=== PATIENT | female | born 1960 | race Caucasian/White ===

== ENCOUNTER 2020-03-19 12:34 | Emergency (ER) | payer OTHER, SELFPAY ==
[2020-03-19 12:41] VITALS: BP 147/100; PULSE 92; RESP 18; TEMP 36.8; O2SAT 96; BMI 33.9
--- NOTE | 2020-03-19 13:30 | CTR_ITS ---
PROCEDURE INFORMATION: Exam: CT Head Without Contrast Exam date and time: 03/19/2020 3:54 PM Age: 60 years old Clinical indication: Visual disturbance; Patient HX: Headache with flashes in right eye; Additional info: COLEMAN with vision changes TECHNIQUE: Imaging protocol: Computed tomography of the head without contrast. Radiation optimization: All CT scans at this facility use at least one of these dose optimization techniques: automated exposure control; mA and/or kV adjustment per patient size (includes targeted exams where dose is matched to clinical indication); or iterative reconstruction. COMPARISON: No relevant prior studies available. RADIATION DOSE METRICS: Total DLP (mGy-cm): 827.21 FINDINGS: Brain: No acute intracranial hemorrhage, cerebral edema, or midline shift. Cerebral ventricles: No hydrocephalus. Bones/joints: No acute fracture. Paranasal sinuses: There is no acute sinusitis. Mastoid air cells: Visualized mastoid air cells are well aerated. Orbital cavity: Unremarkable as visualized. Soft tissues: Unremarkable. CT/CT head wo con* [id number] IMPRESSION: No acute intracranial abnormality. Radiation Dose CTDIVOL = (mGy): DLP = 827.21 (mGy-cm)
--- NOTE | 2020-03-19 14:16 | W.ED.HA ---
HPI - Headache General: Chief Complaint: Headache Stated Complaint: vision problems/headache Time Seen by Provider: 03/19/20 13:48 History of Present Illness: HPI Narrative: 60-year-old female patient presents to the emergency department [facility] She reports onset of headache yesterday, reports flashes of light in the right eye with certain movement. She denies history of migraine headaches. [facility], they referred her to the emergency department due to need for CT scan of the head. She reports light sensitivity, denies nausea vomiting, reports extremely anxious and upset due to wait time. She reports is due for her Valium, Valium bottle with her, 5 mg tablets. MD elicited complaint: headache Onset (ago): hour(s) (24) Onset description: gradually Location: frontal Severity: moderate Pain scale (0-10): 5 Quality & Timing: aching and throbbing Exacerbating factors: exertion, light and noise Relieving factors: rest Associated symptoms: Reports photophobia and other (Flashes of light in the left eye with ocular movement); Deny chest pain, diaphoresis, fever(s), malaise, nausea, rash or vomiting Treatments prior to arrival: none Review of Systems General: Reports: 10 or more systems reviewed and unremarkable except in HPI and below Const: Denies: fever(s), chills, body aches, fatigue, malaise or diaphoresis Eyes: Reports: change in vision (Flashes of light with ocular movement), photophobia and seeing flashes; Denies: blurry vision, eye discharge, eye redness or dry eyes ENMT: Denies: throat pain, oral sores, dental pain, disequilibrium or nasal congestion Card: Denies: chest pain, palpitations or irregular heart rhythm Resp: Denies: dyspnea, productive cough, non-productive cough or wheezing GI: Denies: abdominal pain, nausea, vomiting or GI cramping : Denies: difficulty voiding or dysuria Musc: Denies: neck pain or back pain Skin/Breast: Denies: rash or pruritus Neuro: Denies: headache(s), weakness in extremities or behavioral changes Psych: Reports: anxiety; Denies: depression or change in appetite Cristhian/Lymph: Denies: easy bruising Physical Exam Const: COMMON NORMALS: no acute distress, patient oriented x3, healthy appearing and alert GENERAL APPEARANCE: cooperative, comfortable and well hydrated HENMT: COMMON NORMALS: normocephalic, atraumatic, external ears normal, EAC's normal, TM's normal bilaterally, Normal external nose present, Normal nasal mucous membranes and turbinates present, moist oral mucous membranes and oropharynx normal HEAD & SCALP: normal to inspection, normocephalic and atraumatic NOSE: Normal external nose present and Normal nasal mucous membranes and turbinates present EXTERNAL EAR: Yes external ears normal EXTERNAL AUDITORY CANAL: EAC's normal TYMPANIC MEMBRANE: TM's normal bilaterally Eye: COMMON NORMALS: Equal, round and reactive pupils present and EOMs intact bilaterally GENERAL EYE: appearance normal, both eyes and all related structures PERIORBITAL: periorbital findings normal EYELID: eyelids normal PUPIL: Yes Equal, round and reactive pupils present, Yes pupil size - right Right pupil size (mm): 3 and Yes pupil size - left Left pupil size (mm): 3 DIRECT OPHTHALMOSCOPY: Yes photophobia Neck/C-Spine: COMMON NORMALS: full ROM and no lymphadenopathy GENERAL: Yes normal visual inspection and Yes trachea midline CERVICAL SPINE: Yes cervical ROM normal, No pain with cervical ROM and No Cervical spine tenderness Lymph: LYMPHATIC: no lymphadenopathy noted Chest: COMMONS NORMALS: normal inspection of the chest Resp: COMMON NORMALS: normal respiratory effort, No use of accessory muscles and clear to auscultation bilaterally EFFORT & INSPECTION: Yes able to speak in complete sentences AUSCULTATION: clear to auscultation bilaterally Cardio: COMMON NORMALS: regular rhythm, S1 normal heart sound present, S2 normal heart sound present and Peripheral pulses 2+ throughout RHYTHM: regular rhythm HEART SOUNDS: S1 normal heart sound present and S2 normal heart sound present PERIPHERAL PULSES: Peripheral pulses 2+ throughout GI: COMMON NORMALS: Normal to inspection, nondistended, normoactive bowel sounds present, Soft to palpation and non-tender INSPECTION: Yes normal to inspection PALPATION: Yes Soft to palpation : COMMON NORMALS: Yes no CVA tenderness BLADDER/KIDNEY EXAM: Yes no CVA tenderness Back/Pelvis: COMMON NORMALS: no CVA tenderness and thoracic and lumbar spine normal to inspection Extremity: COMMON NORMALS: normal to inspection and capillary refill normal Neuro: CAROLE COMA SCALE: document GCS findings [place]ole coma scale eye opening: Spontaneous [place] coma scale verbal response: Orientated [place] coma scale motor response: Obey commands [place] coma scale total score: 15 COMMON NORMALS: patient oriented x3, moves all extremities, no focal motor deficits and gait normal SENSORIUM/ORIENTATION: Yes alert COORDINATION/BALANCE: [id number] test normal SPEECH: speech normal MOTOR EXAM: 5/5 motor strength present throughout COORDINATION: [id number] test normal and Romberg test normal Right pupil size (mm): 4 Left pupil size (mm): 4 Psych: COMMON NORMALS: mental status grossly normal, Normal thought process present, cooperative and speech normal ACTIVITY/MOTOR BEHAVIOR: Yes appropriate eye contact SPEECH: Yes normal speech MOOD & AFFECT: Yes anxious THOUGHT PROCESS: Normal thought process present THOUGHT CONTENT: Yes Normal thought content present ATTENTION/CONCENTRATION: Yes attention grossly intact MEMORY/COGNITION: Yes memory grossly intact INSIGHT: Good insight present (Psych) JUDGEMENT: Good judgement present (Psych) Skin: COMMON NORMALS: no rashes or lesions noted and turgor normal GENERAL SKIN EXAM: no rashes or lesions noted and turgor normal Course ED course: 60-year-old female patient presented to the emergency department with onset of headache since yesterday. She reports [facility] that she was experiencing flashes of light in the right eye, CT scan of the head revealed no intracranial abnormalities, white blood count without elevation, patient received Tylenol here in the ED, did relieve her headache. She was administered Toradol and dexamethasone here in the ED for acute headache. Neurological exam normal without acute abnormalities. Advised to follow-up with primary care physician next week without fail for evaluation of headaches. I also advised her to return to emergency department if she develops worsening headache symptoms. Of note, while she was in CAT scan, she did get up and sustained a fall to the right knee. Upon exam of the right knee, negative drawer exam, patient was ambulating without difficulty, no abrasions or contusions/open wounds identified. She refused x-ray despite negative findings. Distal circulation intact, normal knee exam noted. Vital Signs: Vital signs: Vital Signs Temperature 98.2 F 03/19/20 12:41 Pulse Rate 92 03/19/20 12:41 Respiratory Rate 18 03/19/20 12:41 Blood Pressure 147/100 03/19/20 12:41 Pulse Oximetry 96 03/19/20 12:41 MDM - Headache Lab Data: Labs: Lab Results 11/10/3103/19/20 03/19/20 Range/Units 15:08 15:08 15:08 WBC 8.4 (4.0-10.0) 10^3/ uL RBC 5.02 (4.1-5.3) 10^6/u L Hgb 15.4 H (11.5-15.3) g/dL Hct 46.2 (37.0-47.0) % MCV 92.0 (81-99) fL MCH 30.7 (28.0-34.0) pg MCHC 33.3 (30.0-36.0) g/dL RDW 12.3 (12.1-15.1) % Plt Count 297 (130-400) 10^3/c mm MPV 11.3 H (7.4-10.4) fL Neut % (Auto) 73.2 % Lymph % (Auto) 18.9 % [place] % (Auto) 6.3 % Eos % (Auto) 0.6 % Baso % (Auto) 0.8 % Neut # (Auto) 6.17 (1.8-7.7) 10^3/u L Lymph # (Auto) 1.6 (0.8-4.8) 10^3/u L [place] # (Auto) 0.5 (0.2-0.9) 10^3/u L Eos # (Auto) 0.1 (0.0-0.8) 10^3/u L Baso # (Auto) 0.1 (0.0-0.1) 10^3/u L Nucleated RBC % (a uto) 0 % Nucleated RBCs # 0.0 /100WBC ESR 10 (0-15) mm/hr Sodium 140 (136-145) mmol/L Potassium 4.2 (3.5-5.1) mmol/L Chloride 106 (98-107) mmol/L Carbon Dioxide 24 (22-29) mmol/L Anion Gap 14.2 (5-19) BUN 8 (6-20) mg/dL Creatinine 0.8 (0.5-0.9) mg/dL GFR Calculation 73.4 L (90-130) mL/min Glucose 111 (65-115) mg/dL Calculated Osmolal ity 289 (285-295) mOsm/k g Calcium 9.5 (8.5-10.5) mg/dL Total Bilirubin 0.4 (0.15-1.2) mg/dL AST 17 (0-32) U/L ALT 21 (0-33) U/L Alkaline Phosphata se 136 H (35-105) IU/L Total Protein 6.7 (6.6-8.7) g/dL Albumin 4.2 (3.5-5.2) g/dL Globulin 2.5 (1.3-4.6) g/dL Imaging Data^: CT Head: Radiologist's impression: [address] [address] [address] Scan Report Signed Patient: Sera Marcano Unit #: [id number] : 1960 Age/Sex: 60 / F ADM Date: 03/19/20 Loc: ER Room/Bed: Attending Dr: Ordering Provider/Ordering MD: Fiorella Stoner Date of Service: 03/19/20 Procedure(s): CT head wo con* [id number] Accession Number(s): [id number] Report Number: [id number] PROCEDURE INFORMATION: Exam: CT Head Without Contrast Exam date and time: 03/19/2020 3:54 PM Age: 60 years old Clinical indication: Visual disturbance; Patient HX: Headache with flashes in right eye; Additional info: COLEMAN with vision changes TECHNIQUE: Imaging protocol: Computed tomography of the head without contrast. Radiation optimization: All CT scans at this facility use at least one of these dose optimization techniques: automated exposure control; mA and/or kV adjustment per patient size (includes targeted exams where dose is matched to clinical indication); or iterative reconstruction. COMPARISON: No relevant prior studies available. RADIATION DOSE METRICS: Total DLP (mGy-cm): 827.21 FINDINGS: Brain: No acute intracranial hemorrhage, cerebral edema, or midline shift. Cerebral ventricles: No hydrocephalus. Bones/joints: No acute fracture. Paranasal sinuses: There is no acute sinusitis. Mastoid air cells: Visualized mastoid air cells are well aerated. Orbital cavity: Unremarkable as visualized. Soft tissues: Unremarkable. CT/CT head wo con* [id number] IMPRESSION: No acute intracranial abnormality. Radiation Dose CTDIVOL = (mGy): DLP = 827.21 (mGy-cm) Dictated By: Pranay Majano MD Signed By: Pranay Majano MD Signed Date/Time: 03/19/201646 DD/ 44 Discharge Plan Discharge Patient Disposition: Home Clinical Impression: Headache Qualifiers: Headache type: unspecified Headache chronicity pattern: episodic headache Intractability: not intractable Qualified Code(s): R51.9 - Headache, unspecified Contusion of knee, right Qualifiers: Encounter type: initial encounter Qualified Code(s): S80.01XA - Contusion of right knee, initial encounter Condition: Stable Discharge Orders: Discharge Order (Routine); Ordered 03/19/20 Ordered By: Fiorella Stoner Referrals: Wellington Temple [Primary Care Provider] - Discharge Diet: Usual diet Discharge Activity: Resume usual activity Patient Instructions: Headache - Migraine (Adult), Acute Headache (ED), Knee Pain (ED) Activity Restrictions/Additional Instructions: Follow-up with your primary care provider next week without fail for headache If you develop the worst headache of your life, return to the emergency department immediately If you develop weakness in the extremities, inability to feel your arms or legs, return to the emergency department May apply cool compresses to the right knee as needed for pain Coding Level of Care Code ED Nut Dehydrator Operator for Chg Fwd Exam Comprehensive
[2020-03-19] MEDS: diazePAM 5 mg Tablet PO (14:45)
[2020-03-19] MEDS: acetaminophen 500 mg Tablet 1000 MG PO (14:46)
[2020-03-19 15:20] LABS: Basophils # 0.1 10^3/uL (0.0-0.1); Basophils % 0.8 %; Eosinophils # 0.1 10^3/uL (0.0-0.8); Eosinophils % 0.6 %; Hematocrit 46.2 % (37.0-47.0); Hemoglobin 15.4 g/dL (11.5-15.3); Lymphocytes # 1.6 10^3/uL (0.8-4.8); Lymphocytes % 18.9 %; Mean Corpuscular HGB Conc 33.3 g/dL (30.0-36.0); Mean Corpuscular Hemoglobin 30.7 pg (28.0-34.0); Mean Platelet Volume 11.3 fL (7.4-10.4); Monocytes # 0.5 10^3/uL (0.2-0.9); Monocytes % 6.3 %; Neutrophils # 6.17 10^3/uL (1.8-7.7); Neutrophils % 73.2 %; Nucleated Red Blood Cells % 0 %; Platelet Count 297 10^3/cmm (130-400); Red Blood Count 5.02 10^6/uL (4.1-5.3); Red Cell Distribution Width 12.3 % (12.1-15.1); White Blood Count 8.4 10^3/uL (4.0-10.0)
[2020-03-19 15:35] LABS: Alanine Aminotransferase 21 U/L (0-33); Albumin Level 4.2 g/dL (3.5-5.2); Alkaline Phosphatase 136 IU/L (35-105); Anion Gap 14.2 (5-19); Aspartate Amino Transferase 17 U/L (0-32); Blood Urea Nitrogen 8 mg/dL (6-20); Calcium 9.5 mg/dL (8.5-10.5); Carbon Dioxide 24 mmol/L (22-29); Chloride 106 mmol/L (98-107); Globulin 2.5 g/dL (1.3-4.6); Glomerular Filtration Rate 73.4 mL/min (90-130); Glucose 111 mg/dL (65-115); Osmolality Calculated 289 mOsm/kg (285-295); Potassium 4.2 mmol/L (3.5-5.1); Sodium 140 mmol/L (136-145); Total Bilirubin 0.4 mg/dL (0.15-1.2); Total Protein 6.7 g/dL (6.6-8.7)
[2020-03-19 16:08] LABS: Erythrocyte Sedimentation Rate 10 mm/hr (0-15)
[2020-03-19 17:10] VITALS: RESP 16
[2020-03-19] MEDS: dexamethasone 4 mg/mL INJ 10 MG IM (17:10)
[2020-03-19] MEDS: ketorolac 60 mg/2 mL INJ IM (17:10)
== END 2020-03-19 17:12 | disposition home or self-care (01) ==
PROVIDERS: Emergency Provider Nurse Practitioner Family; PCP Family Medicine
DX: R51.9 Headache, unspecified (principal); S80.01XA Contusion of right knee, initial encounter; X58.XXXA Exposure to other specified factors, initial encounter
CPT/HCPCS: 12345; 70450; 80053; 85025; 85651; 96372; 99282; 99283; J1100; J1885

== ENCOUNTER 2021-08-22 08:54 | Emergency (ER) | payer OTHER, SELFPAY ==
--- NOTE | 2021-08-22 09:07 | ED_ITS ---
HPI - Abdominal Pain General: Stated Complaint: severe constipation Time Seen by Provider: 08/22/21 08:55 Discharge Plan Discharge Condition: Stable Referrals: Wellington Temple [Primary Care Provider] - Coding Level of Care Code ED Pheresis Specialist for Augusto Ponce
--- NOTE | 2021-08-22 09:07 | XRR_ITS ---
PROCEDURE INFORMATION: Exam: XR Abdomen Exam date and time: 08/22/2021 9:26 AM Age: 61 years old Clinical indication: Constipation; Abdominal pain; Generalized; Additional info: Abd pain/cosntipation TECHNIQUE: Imaging protocol: XR of the abdomen. Views: Frontal supine view of the abdomen. 1 View. COMPARISON: CR Chest 1 [place] [id number] 09/14/2015 5:16 PM FINDINGS: Gastrointestinal tract: Fecal material is seen involving the ascending and transverse colon. The descending colon is air-filled distended up to 54 mm with a decompressed sigmoid colon. Bones/joints: Unremarkable. XR/XR KUB portable [id number] IMPRESSION: Full of feces with bowel dilatation. Cannot rule out lesion or area of stenosis involving the sigmoid colon as this appears to decompressed. Consider CT scanning as clinically indicated.
[2021-08-22 09:09] VITALS: BP 138/87; PULSE 88; RESP 16; TEMP 36.8; O2SAT 96; BMI 29.9
--- NOTE | 2021-08-22 09:26 | W.ED.ABDPA2 ---
Documented by User: KIRSTEN Moscoso 08/22/21 15:22 HPI - Abdominal Pain General: Chief Complaint: General Medical Stated Complaint: severe constipation Time Seen by Provider: 08/22/21 08:55 Source: patient Mode of arrival: ambulatory Limitations: no limitations History of Present Illness: Patient is a 61-year-old female who presents to ED today with a complaint of constipation. Patient states her last bowel movement was approximately a week ago. She states normal bowel patterns for her are a bowel movement every 1 to 2 days. Patient states over the past 48 hours she has began developing diffuse abdominal pains. She reportedly has vomited several times. She was seen at [facility] yesterday and had blood work and x-rays performed which were reportedly normal. She states she was discharged home with a solution to drink for constipation but patient states she vomited it up. She states she tried to eat yesterday but vomited immediately. She is not running fevers. She has no history of constipation. No previous abdominal surgeries. She has tried OTC enemas, laxatives, stool softeners, milk of magnesium/mag citrate all without relief. MD elicited complaint: abdominal pain and other (constipation) Pertinent past history: none Onset (ago): day(s) Pain Consistency: constant Location: Diffuse Severity: moderate Quality: cramping Radiation: none Migration to: no migration Exacerbating factors: eating Relieving factors: nothing Associated Symptoms: Reports bloating, constipation, nausea and vomiting; Denies chills, dysuria, fever(s), hematuria and hematemesis Related Data: Patient : No Review of Systems Const: Denies: fever(s), chills, body aches, fatigue or malaise Card: Denies: chest pain Resp: Denies: dyspnea GI: Reports: abdominal pain, nausea, vomiting, constipation and bloating; Denies: hematemesis : Denies: flank pain, dysuria or hematuria Musc: Denies: neck pain, back pain, extremity pain or joint pain Skin/Breast: Denies: rash Neuro: Denies: headache(s), numbness in extremities, weakness in extremities, sensory changes or dizziness Physical Exam Const: COMMON NORMALS: no acute distress, patient oriented x3, no limitations and alert GENERAL APPEARANCE: cooperative NUTRITIONAL APPEARANCE: overweight ORIENTATION/CONSCIOUSNESS: Yes awake, Yes oriented to person, Yes oriented to place and Yes oriented to time HENMT: COMMON NORMALS: normocephalic and atraumatic HEAD & SCALP: normocephalic and atraumatic Resp: COMMON NORMALS: normal respiratory effort and clear to auscultation bilaterally AUSCULTATION: clear to auscultation bilaterally Cardio: COMMON NORMALS: regular rate and regular rhythm RATE: regular rate RHYTHM: regular rhythm GI: COMMON NORMALS: Soft to palpation, No hepatosplenomegaly present and no masses INSPECTION: Yes abdominal distension (mild) AUSCULTATION: Yes Hypoactive bowel sounds present PALPATION: Yes Soft to palpation, Yes Tenderness to palpation present (GI) (throughout), No Guarding due to palpation present (GI), No Rigid due to palpation and Yes No hepatosplenomegaly present RECTAL EXAM: no fecal impaction and other (two skin tags present; ecchymosis surrounding anus; no stool palpated) : COMMON NORMALS: Yes no CVA tenderness BLADDER/KIDNEY EXAM: Yes no CVA tenderness Back/Pelvis: COMMON NORMALS: no CVA tenderness Extremity: COMMON NORMALS: normal to inspection GENERAL: Yes normal exam except as noted Neuro: CAROLE COMA SCALE: document GCS findings Carole coma scale eye opening: Spontaneous [place] coma scale verbal response: Orientated [place] coma scale motor response: Obey commands [place] coma scale total score: 15 COMMON NORMALS: patient oriented x3, moves all extremities, no focal motor deficits and no sensory deficits noted SENSORIUM/ORIENTATION: Yes alert, Yes oriented to person, Yes oriented to place and Yes oriented to time Course Consultations: Consultation #1: Dr. Delgado-general surgery [facility]-accepts as a direct admit to her service Vital Signs: Vital signs: Vital Signs Temperature 98.3 F 08/22/21 09:09 Pulse Rate 89 08/22/21 12:32 Respiratory Rate 16 08/22/21 12:32 Blood Pressure 135/99 08/22/21 12:32 Pulse Oximetry 97 08/22/21 12:32 MDM - Abdominal Pain Medical Decision Making Patient here with complaints of constipation over the past week and abdominal pain over the past 48 hours with vomiting. Her vital signs are stable. Blood work is unremarkable. Patient did have an abnormal KUB which then led to proceeding with CT imaging. Her CT scan shows a high-grade obstructing sigmoid lesion suspicious for a colonic neoplasm. We unfortunately do not have the general surgeon on-call for our facility today therefore patient will require transfer. I spoke to Fani who did not have any availability. I spoke to [facility] general surgery Dr. Delgado who graciously accepted patient. Dr. Darnell has seen and evaluated patient and agrees with work-up performed here and plan for patient. Lab Data : 08/22/21 09:55 08/22/21 09:55 Labs/Radiology: Radiology Impressions KUB X-Ray 08/22/21 09:07 IMPRESSION: Full of feces with bowel dilatation. Cannot rule out lesion or area of stenosis involving the sigmoid colon as this appears to decompressed. Consider CT scanning as clinically indicated. Abdomen/Pelvis CT 08/22/21 09:33 IMPRESSION: 1. High grade obstructing sigmoid lesion suspicious for colonic neoplasm. Mass measures 3.9 x 3.5 cm and extends over length of 3.7 cm. Recommend colonoscopy for biopsy. 2. Small amount of ascites in the pelvis. 3. There are a few small mesenteric lymph nodes. These are subcentimeter. 4. No metastatic lesions within the liver or adrenal glands. 5. Low-attenuation nodule in the proximal small bowel is probably a small lipoma. Laboratory Results WBC 8.8 10^3/uL (4.0-10.0) 08/22/21 09:55 RBC 4.77 10^6/uL (4.1-5.3) 08/22/21 09:55 Hgb 14.3 g/dL (11.5-15.3) 08/22/21 09:55 Hct 43.4 % (37.0-47.0) 08/22/21 09:55 MCV 91.0 fl (81-99) 08/22/21 09:55 MCH 30.0 pg (28.0-34.0) 08/22/21 09:55 MCHC 32.9 g/dL (30.0-36.0) 08/22/21 09:55 RDW 12.5 % (12.1-15.1) 08/22/21 09:55 Plt Count 242 10^3/cmm (130-400) 08/22/21 09:55 MPV 11.9 fL (7.4-10.4) H 08/22/21 09:55 Neut % (Auto) 77.0 % 08/22/21 09:55 Lymph % (Auto) 14.3 % 08/22/21 09:55 [place] % (Auto) 8.0 % 08/22/21 09:55 Eos % (Auto) 0.3 % 08/22/21 09:55 Baso % (Auto) 0.3 % 08/22/21 09:55 Neut # (Auto) 6.75 10^3/uL (1.8-7.7) 08/22/21 09:55 Lymph # (Auto) 1.3 10^3/uL (0.8-4.8) 08/22/21 09:55 [place] # (Auto) 0.7 10^3/uL (0.2-0.9) 08/22/21 09:55 Eos # (Auto) 0.0 10^3/uL (0.0-0.8) 08/22/21 09:55 Baso # (Auto) 0.0 10^3/uL (0.0-0.1) 08/22/21 09:55 Nucleated RBC % (auto) 0 % 08/22/21 09:55 Nucleated RBCs # 0.0 /100WBC 08/22/21 09:55 Sodium 143 mmol/L (136-145) 08/22/21 09:55 Potassium 4.3 mmol/L (3.5-5.1) 08/22/21 09:55 Chloride 109 mmol/L (98-107) H 08/22/21 09:55 Carbon Dioxide 25 mmol/L (22-29) 08/22/21 09:55 Anion Gap 13.3 (5-19) 08/22/21 09:55 BUN 11 mg/dL (8-23) 08/22/21 09:55 Creatinine 0.7 mg/dL (0.5-0.9) 08/22/21 09:55 GFR Calculation 85.4 mL/min (90-130) L 08/22/21 09:55 Glucose 97 mg/dL (65-115) 08/22/21 09:55 Calculated Osmolality 295 mOsm/kg (285-295) 08/22/21 09:55 Lactic Acid 0.8 mmol/L (0.5-2.2) 08/22/21 10:17 Calcium 9.3 mg/dL (8.5-10.5) 08/22/21 09:55 Total Bilirubin 0.7 mg/dL (0.15-1.2) 08/22/21 09:55 AST 15 U/L (0-32) 08/22/21 09:55 ALT 18 U/L (0-33) 08/22/21 09:55 Alkaline Phosphatase 121 IU/L (35-105) H 08/22/21 09:55 Total Protein 6.2 g/dL (6.6-8.7) L 08/22/21 09:55 Albumin 3.9 g/dL (3.5-5.2) 08/22/21 09:55 Globulin 2.3 g/dL (1.3-4.6) 08/22/21 09:55 Lipase 11 U/L (13-60) L 08/22/21 09:55 Discharge Plan Discharge Condition: Stable Prescriptions: No Action multivitamin Tablet 1 tab PO DAILY 0RF cetirizine 10 mg Tablet 10 mg PO DAILY PRN (Reason: Allergy Symptoms) 0RF albuterol sulfate 90 mcg/actuation HFA aerosol inhaler 2 puff INHALATION Q6H PRN (Reason: Shortness Of Breath) 0RF fluticasone propionate 250 mcg/actuation Blister With Device 1 inh INHALATION BID 0RF diazepam 5 mg Tablet 5 mg PO DAILY PRN (Reason: Anxiety) 0RF Referrals: Wellington Temple [Primary Care Provider] - Coding Level of Care Code ED Rpg Programmer for g Fwd Exam Comprehensive Documented by User: Compa Darnell DO 08/22/21 15:34 HPI - Abdominal Pain General: Chief Complaint: General Medical Stated Complaint: severe constipation Time Seen by Provider: 08/22/21 08:55 Physical Exam Neuro: CAROLE COMA SCALE: document GCS findings [place]ole coma scale total score: 15 Course Vital Signs: Vital signs: Vital Signs Temperature 98.3 F 08/22/21 09:09 Pulse Rate 89 08/22/21 12:32 Respiratory Rate 16 08/22/21 12:32 Blood Pressure 135/99 08/22/21 12:32 Pulse Oximetry 97 08/22/21 12:32 MDM - Abdominal Pain Medical Decision Making Patient here with complaints of constipation over the past week and abdominal pain over the past 48 hours with vomiting. Her vital signs are stable. Blood work is unremarkable. Patient did have an abnormal KUB which then led to proceeding with CT imaging. Her CT scan shows a high-grade obstructing sigmoid lesion suspicious for a colonic neoplasm. We unfortunately do not have the general surgeon on-call for our facility today therefore patient will require transfer. I spoke to Fani who did not have any availability. I spoke to [facility] general surgery Dr. Delgado who graciously accepted patient. Dr. Darnell has seen and evaluated patient and agrees with work-up performed here and plan for patient. Chart reviewed and patient discussed with midlevel. Agree with assessment and plan. Reviewed labs and imaging. Discussed with the patient and with midlevel. Unfortunately do not have general surgery call coverage at this time will transfer patient to [facility]. Medical Records I reviewed the patient's medical records. Lab Data I reviewed the patient's lab results. : 08/22/21 09:55 08/22/21 09:55 Labs/Radiology: Radiology Impressions KUB X-Ray 08/22/21 09:07 IMPRESSION: Full of feces with bowel dilatation. Cannot rule out lesion or area of stenosis involving the sigmoid colon as this appears to decompressed. Consider CT scanning as clinically indicated. Abdomen/Pelvis CT 08/22/21 09:33
--- NOTE | 2021-08-22 09:33 | CT_ITS ---
WS: [id number] CT ABDOMEN AND PELVIS WITH CONTRAST HISTORY: abdominal pain, constipation, vomiting TECHNIQUE: Imaging performed of the abdomen and pelvis with IV contrast. Single phase imaging of the abdomen. Coronal and sagittal reformats are submitted. All CT scans at [facility] use at [address] one of these dose optimization techniques: automated exposure control; mA and/or kV adjustment per patient size (includes targeted exams where dose is matched to clinical indication); or iterative re construction. IV CONTRAST: Omnipaque 300; 95 mL IV. Oral contrast: No DLP: 1795.61 mGy.cm COMPARISON: None available. Lower thorax: Lung bases are clear. Heart is normal size. Small hiatal hernia. Liver/biliary system: Normal size with no intrahepatic dilatation. Normal portal vein. Gallbladder: Normal. No gallstones or wall thickening. No pericholecystic fluid. Pancreas: Normal size pancreas with mild fatty replacement. No duct dilatation. Spleen: Normal size spleen. No mass or infarct. Splenule adjacent to the lateral spleen. Adrenal glands: Normal. Right kidney: Normal. Left kidney: Normal. Aorta: Mild atherosclerosis with no aneurysm. Enhancement of the proximal celiac axis and SMA are nor mal. The opacification in the mid SMA becomes limited. This is probably due to phase of injection. Lymphadenopathy: There are small mesenteric lymph nodes which are subcentimeter. Free fluid: Small amount of free fluid in the pelvis. GI tract: Stomach is nondistended. No small bowel obstruction. There is a small filling defect within the proximal small bowel. There is a 7 mm defect in the proximal small bowel which may be a lipoma. Not causing a significant obstruction. There is marked air distention of majority of the colon. There is also small amount of retained fecal material. There is a transition point in the sigmoid consiste nt with a high-grade obstructing lesion. Lesions extends over length of 3.7 cm x 3.9 x 3.5 cm with hi gh-grade obstruction of the lumen. There is mild peripheral enhancement. There are also a few a small associated diverticula. Normal appendix. Abdominal wall: Fat containing umbilical hernia. Pelvis: Small amount of free fluid in the pelvis. Uterus remains midline and mildly atrophic as expec rossana. Small caliber ovaries. Minimally distended urinary bladder. Bones: Unremarkable. CT/CT abdomen pelvis w con* [id number] IMPRESSION: 1. High grade obstructing sigmoid lesion suspicious for colonic neoplasm. Mass measures 3.9 x 3.5 cm and extends over length of 3.7 cm. Recommend colonoscopy for biopsy. 2. Small amount of ascites in the pelvis. 3. There are a few small mesenteric lymph nodes. These are subcentimeter. 4. No metastatic lesions within the liver or adrenal glands. 5. Low-attenuation nodule in the proximal small bowel is probably a small lipo ma.
[2021-08-22 09:55] VITALS: BP 137/115; PULSE 77; RESP 16; O2SAT 96
[2021-08-22 10:10] LABS: Basophils % 0.3 %; Eosinophils % 0.3 %; Hematocrit 43.4 % (37.0-47.0); Hemoglobin 14.3 g/dL (11.5-15.3); Lymphocytes # 1.3 10^3/uL (0.8-4.8); Lymphocytes % 14.3 %; Mean Corpuscular HGB Conc 32.9 g/dL (30.0-36.0); Mean Platelet Volume 11.9 fL (7.4-10.4); Monocytes # 0.7 10^3/uL (0.2-0.9); Neutrophils # 6.75 10^3/uL (1.8-7.7); Nucleated Red Blood Cells % 0 %; Platelet Count 242 10^3/cmm (130-400); Red Blood Count 4.77 10^6/uL (4.1-5.3); Red Cell Distribution Width 12.5 % (12.1-15.1); White Blood Count 8.8 10^3/uL (4.0-10.0)
[2021-08-22 10:39] LABS: Alanine Aminotransferase 18 U/L (0-33); Albumin Level 3.9 g/dL (3.5-5.2); Alkaline Phosphatase 121 IU/L (35-105); Anion Gap 13.3 (5-19); Aspartate Amino Transferase 15 U/L (0-32); Blood Urea Nitrogen 11 mg/dL (8-23); Calcium 9.3 mg/dL (8.5-10.5); Carbon Dioxide 25 mmol/L (22-29); Chloride 109 mmol/L (98-107); Globulin 2.3 g/dL (1.3-4.6); Glomerular Filtration Rate 85.4 mL/min (90-130); Glucose 97 mg/dL (65-115); Lipase 11 U/L (13-60); Osmolality Calculated 295 mOsm/kg (285-295); Potassium 4.3 mmol/L (3.5-5.1); Sodium 143 mmol/L (136-145); Total Bilirubin 0.7 mg/dL (0.15-1.2); Total Protein 6.2 g/dL (6.6-8.7)
[2021-08-22] MEDS: iohexol 300 mg/mL 100 mL Btl IV (10:57)
[2021-08-22 11:05] LABS: Lactic Sepsis W/Reflex 0.8 mmol/L (0.5-2.2)
[2021-08-22 12:32] VITALS: BP 135/99; PULSE 89; RESP 16; O2SAT 97
[2021-08-22] MEDS: ondansetron 2 mg/ML SDV 2 mL 4 MG IVP (12:52)
[2021-08-22] MEDS: morphine 4 mg/mL SDV 1 mL IVP ×2 (12:52→20:25)
[2021-08-22] MEDS: sodium chloride 0.9% 1,000 ML 150 ML IV (13:57)
[2021-08-22 15:28] VITALS: BP 127/73; PULSE 81; RESP 16; O2SAT 96
[2021-08-22 18:05] VITALS: BP 135/87; PULSE 81; RESP 16; O2SAT 98
[2021-08-22 21:14] VITALS: BP 138/85; PULSE 90; RESP 18; O2SAT 98
== END 2021-08-22 20:44 | disposition short-term general hospital (02) ==
PROVIDERS: Emergency Provider Physician Assistant; PCP Family Medicine
DX: K56.609 Unspecified intestinal obstruction, unspecified as to partial versus complete obstruction (principal); K59.00 Constipation, unspecified; R11.2 Nausea with vomiting, unspecified
CPT/HCPCS: 74018; 74177; 80053; 83605; 83690; 85025; 96361; 96374; 96375; 96376; 99285; J2270; J2405; J7030; Q9967

== ENCOUNTER → 2021-12-29 10:05 | Outpatient (BNVA) | payer OTHER, SELFPAY | PROVIDERS: PCP Family Medicine; Referring Provider Internal Medicine Medical Oncology; Visit Provider Surgery | DX: C18.7 Malignant neoplasm of sigmoid colon (principal) | CPT/HCPCS: 99203 ==

== ENCOUNTER 2022-01-02 11:55 | Day surgery (SDC) | payer OTHER, SELFPAY ==
[2022-01-02] VITALS (7 sets, daily range): BP systolic 123–144; BP diastolic 60–78; PULSE 66–77; RESP 16–20; TEMP 36.2–36.6; O2SAT 97–100
--- NOTE | 2022-01-02 | SCC_ITS ---
Procedure done: Mediport insertion 2.7 seconds of fluoroscopic guidance, for a cumulative dose of 0.38 mGy, was provided to Dr. Hobbs by the radiology department. C-arm images of the chest were saved for the patient's permanent record. [facility]
--- NOTE | 2022-01-02 12:19 | ANES.PREANE2 ---
Pre-Anesthetic Assessment Height/Weight: Height 1.65 m Weight 78.018 kg Temp Pulse Resp BP Pulse Ox O2 Del Method 98 F 69 16 144/78 97 01/02/22 12:08 01/02/22 12:08 01/02/22 12:08 01/02/22 12:08 01/02/22 12:08 01/02/22 12:08 Preop Diagnosis: Colon Cancer Operation Date: 01/02/22 13:40 Proposed Procedures p Portacath Placement 31952,C18.7(Not Applicable) - Juan Hobbs DO Familial anesthetic complications: none Was Beta Isabella taken within 24 hours: N/A Was Clonidine taken within 24 hours: N/A Last intake: Intake Last Liquid Date 01/01/22 Last Liquid Time 18:00 Last Solid Date 01/01/22 Last Solid Time 18:00 Social Tobacco and No alcohol Exam alert, oriented x 3 and regular rate & rhythm Right lung wheezing, improved with deep inspiration Airway Submandibular: within normal limits Cervical ROM: within normal limits Mallampati: Class II Dentition: partials Pulmonary Asthma CV/HEM None reported METS > 4 None reported Hepatic None reported GI Colon cancer Metabolic None reported Musc/skel Psoriasis Neuropsych None reported Anesthetic Plan ASA status: 3 Anesthesia: Anesthesia Evaluation, General and MAC Other: We discussed risk and benefits of general anesthesia including PONV, sore throat (sometimes severe), corneal abrasion, positioning and peripheral nerve injuries, life threatening allergic reaction, post operative ICU admission requiring prolonged intubation, aspiration, stroke, heart attack, , and rare incidences of recall. I discussed with the patient risks, goals, and benefits of MAC and general anesthesia. We discussed spectrum of MAC anesthesia including conversion to general as well as possibility of recall of intraoperative stimuli including discomfort/pain. Patient consents to MAC or General pending further discussion with surgeon. Risk of > 500 ml blood loss (7ml/kg in children): No Medications/Allergies Home Medications Medication Instructions Recorded Confirmed Last Taken Type albuterol sulfate 90 mcg/actuation 2 puff inhalation Q6H PRN 08/22/21 12/30/21 Unknown History aerosol inhaler Shortness Of Breath diazepam 5 mg tablet 5 mg PO DAILY PRN Anxiety 08/22/21 12/30/21 Unknown History multivitamin 1 tab PO DAILY 08/22/21 12/30/21 08/22/21 History fluticasone propionate 250 1 inh inhalation BID PRN Shortness 12/27/21 12/30/21 Unknown History mcg/actuation blister powder for Of Breath inhalation Allergies Allergy/AdvReac Type Severity Reaction Status Date / Time No Known Allergies Allergy Verified 12/29/21 10:08 [facility] Anesthesia Medical History Asthma Chronic anxiety Colon cancer History of hypoglycemia Osteoarthritis Osteoporosis Psoriasis Vitamin D deficiency Surgical History History of endometrial ablation (2004) History of partial colectomy (08/25/21) Sigmoid colon resection Hx of colonoscopy Family History Father Cancer Mother CAD (coronary artery disease) Denies family history of Diabetes Clotting disorder Dementia Hyperlipidemia Psychiatric illness Chronic kidney disease (CKD) Suicide Anesthesia complication Bleeding disorder Lung disease Hypertension Stroke Social History Smoking and tobacco status: current every day smoker (1 ppd) cigarettes Packs smoked per day: 1 Alcohol intake: never Data Anesthesia Cardiac Studies: No Data to Display
[2022-01-02] MEDS: sodium chloride 0.9% 1,000 ML 30 ML IV (12:24)
--- NOTE | 2022-01-02 14:58 | W.PM.OPSUD ---
Surgery/Procedure H&P Update DATE OF PROCEDURE: January 02, 2022 DATE H&P PERFORMED: 12/29/21 CHANGES TO PREVIOUS DOCUMENTATION: NONE PREOP DIAGNOSIS: Colon Cancer PLANNED PROCEDURE: Operation Date: 01/02/22 13:40 Proposed Procedures p Portacath Placement 63494,C18.7(Not Applicable) - Juan Hobbs DO
--- NOTE | 2022-01-02 15:00 | SC_ITS ---
WS: [id number] INTRAOPERATIVE TECHNIQUE: 2 Spot fluoroscopic images for intraoperative purposes. FLUOROSCOPY TIME: 2.7 seconds CLINICAL INFORMATION: surgery COMPARISON: None. FINDINGS: LEFT Port-A-Cath with tip in the distal SVC. No visualized pneumothorax. SC/C-arm FL for CVA [id number] IMPRESSION: Images obtained for intraoperative purposes.
[2022-01-02] MEDS: acetaminophen 1,000 MG/100 ML PIGGYBACK 400 MG IV (15:05)
[2022-01-02] MEDS: ceFAZolin 2,000 MG in sodium chloride 0.9% (plus) 50 ML 100 MG IV (15:12)
[2022-01-02] MEDS: heparin, porcine 1,000 unit/mL INJ 10 mL 10000 UNIT INJECTION (15:47)
--- NOTE | 2022-01-02 16:15 | PM.OP ---
Operative Report Date of procedure: January 02, 2022 Pre-op diagnosis: Preop Diagnosis Colon Cancer Post-op diagnosis: same Procedure done: Mediport insertion Implants: Mediport Surgeon: Dr. Juan Hobbs DO Anesthesia: MAC Complications: None apparent Brief History: This is a very pleasant 61-year-old female who just underwent a colon resection for colon cancer. She is in need of chemotherapy access. The risks and benefits of Mediport insertion were explained and documented. Procedure: Patient was taken to the operating room and placed supine on the operating room table. All bony prominences were padded. She was given IV sedation and monitored throughout the case by the anesthesia personnel. SCDs were placed and turned on. The arms were tucked to the side. Patient received Ancef 2 g preoperatively IV. The bilateral chest wall was prepped and draped in usual sterile fashion using chlorhexidine base prep. Sterile drapes were applied. We did procedure pause prior to beginning. An 18 gauge needle was placed in the left subclavian vein. Dark, nonpulsatile blood was aspirated. A guidewire was placed through the needle centrally toward the atrial/vena caval junction. Fluoroscopy visualized good placement. The needle was removed and the guidewire was clipped to the drape with a hemostat. Further local anesthetic was infiltrated in the soft tissues of the left chest wall and a #15 blade was used to make a horizontal skin incision. A subcutaneous Mediport pocket was created using Bovie cautery, dissecting down through the skin and subcutaneous tissues. Meticulous hemostasis was achieved. The Mediport was sutured in position using 3-0 vicryl suture x2 stitches. A #15 blade was used to make a small skin brodie around the guidewire insertion area. The Mediport tubing was tunneled through the subcutaneous tissues up to the needle insertion location. A dilator with a peel-away sheath was placed over the guidewire and placed centrally. After measuring with fluoroscopy, the Mediport tubing was cut to length so that the tip would end at the atrial/vena caval junction. The inner cannula and the guidewire were removed, leaving the dilator sheath in place. The Mediport was flushed. The tip of the catheter was inserted through the peel-away sheath and the peel-away sheath removed in the standard fashion. The Mediport was accessed with a straight Medrano needle and dark, nonpulsatile blood was aspirated and flushed using heparinized saline to hep-lock the Mediport. Final fluoroscopy visualization showed no kink in the catheter and the tip of the Mediport tubing near the atrial/vena caval junction. Both skin incisions were thoroughly irrigated and suctioned dry. Meticulous hemostasis noted. The Mediport incision was closed using interrupted 3-0 Vicryl suture for the deep dermal layer and 4-0 Vicryl run to close the skin edge. The left subclavian insertion site incision was closed with a single subcuticular stitch. Skin glue was applied as a topical dressing. This was allowed to dry. Patient was awakened from anesthesia and transferred via her cart to the recovery room in stable condition. All needle, sponge, and instrument counts were correct per the operating personnel x2 counts.
--- NOTE | 2022-01-02 16:17 | XRR_ITS ---
PROCEDURE INFORMATION: Exam: XR Chest Exam date and time: 01/02/2022 4:22 PM Age: 61 years old Clinical indication: Device placement; Other: Port placement; Prior surgery; Surgery date: Post-operative (0-2 days); Additional info: Post port placement, PT in ops room 5 TECHNIQUE: Imaging protocol: Radiologic exam of the chest. Views: 1 view. COMPARISON: CR Chest 1 [place] [id number] 09/14/2015 5:16 PM FINDINGS: Tubes, catheters and devices: Left chest wall infusion port with catheter tip in the cavoatrial region. Lungs: Minimal bilateral nonspecific reticular interstitial prominence is noted , new since prior exam and may represent nonspecific interstitial lung disease. No obvious dense consolidation however the lung bases are difficult to assess. Pleural spaces: Unremarkable. No pleural effusion. No pneumothorax. Heart/Mediastinum: No cardiomegaly. Bones/joints: No acute findings. XR/XR chest 1V portable [id number] IMPRESSION: Minimal interstitial prominence. See discussion above.
--- NOTE | 2022-01-02 17:59 | ANE.PACU2 ---
Inpatient post-anesthesia follow up: Airway intact: Yes Vital signs: Temperature 97.8 F Pulse Rate 66 Respiratory Rate 16 Blood Pressure 137/75 Pulse Oximetry 98 Oxygen Delivery Me thod Room Air Oxygen Flow Rate Fraction of Inspir ed Oxygen Hydration adequate: Yes Nausea and vomiting: No Pain level: 1 Mental status: Baseline
== END 2022-01-02 17:13 | disposition home or self-care (01) ==
PROVIDERS: PCP Nurse Practitioner; Visit Provider Surgery
PROC: (CPT 36561; principal; 2022-01-02 13:40)
DX: C18.9 Malignant neoplasm of colon, unspecified (principal); Z90.49 Acquired absence of other specified parts of digestive tract; J45.909 Unspecified asthma, uncomplicated; M81.0 Age-related osteoporosis without current pathological fracture; F17.210 Nicotine dependence, cigarettes, uncomplicated
CPT/HCPCS: 36561; 71045; 76000; 77001; C1788; J1644; J2704; J3010; J7030

== ENCOUNTER 2022-01-10 09:30 | Oncology outpatient (recurring) (ONCR) | payer OTHER, SELFPAY ==
[2022-01-03 08:24] VITALS: BMI 28.8
[2022-01-03 08:31] LABS: Basophils % 0.3 %; Eosinophils # 0.2 10^3/uL (0.0-0.8); Eosinophils % 2.6 %; Hematocrit 41.8 % (37.0-47.0); Hemoglobin 13.9 g/dL (11.5-15.3); Lymphocytes # 1.4 10^3/uL (0.8-4.8); Mean Corpuscular HGB Conc 33.3 g/dL (30.0-36.0); Mean Corpuscular Hemoglobin 29.1 pg (28.0-34.0); Mean Corpuscular Volume 87.6 fl (81-99); Mean Platelet Volume 11.9 fL (7.4-10.4); Monocytes # 0.5 10^3/uL (0.2-0.9); Monocytes % 7.5 %; Neutrophils # 4.34 10^3/uL (1.8-7.7); Neutrophils % 67.4 %; Nucleated Red Blood Cells % 0 %; Platelet Count 247 10^3/cmm (130-400); Red Blood Count 4.77 10^6/uL (4.1-5.3); Red Cell Distribution Width 13.2 % (12.1-15.1); White Blood Count 6.4 10^3/uL (4.0-10.0)
[2022-01-03 08:57] LABS: Carcinoembryonic Antigen 3.4 ng/mL (0.0-4.7)
[2022-01-03 09:09] LABS: Alanine Aminotransferase 12 U/L (0-33); Albumin Level 3.8 g/dL (3.5-5.2); Alkaline Phosphatase 140 U/L (35-105); Anion Gap 15.2 (5-19); Aspartate Amino Transferase 15 U/L (0-32); Blood Urea Nitrogen 10 mg/dL (8-23); Calcium 8.9 mg/dL (8.5-10.5); Carbon Dioxide 23 mmol/L (22-29); Chloride 108 mmol/L (98-107); Glomerular Filtration Rate 85.4 mL/min (90-130); Glucose 115 mg/dL (65-115); Osmolality Calculated 294 mOsm/kg (285-295); Potassium 4.2 mmol/L (3.5-5.1); Sodium 142 mmol/L (136-145); Total Bilirubin 0.4 mg/dL (0.15-1.2); Total Protein 5.8 g/dL (6.6-8.7)
[2022-01-03] MEDS: dextrose 5% 250 ML 50 ML IV (09:32)
[2022-01-03] MEDS: palonosetron 0.25 mg/5 mL SDV IVP (09:40)
[2022-01-03] MEDS: DEXTROSE 5% IV (10:36)
[2022-01-03] MEDS: OXALIPLATIN IV (10:36)
[2022-01-03] MEDS: leucovorin 750 MG in dextrose 5% 250 ML 81.25 MG IV (10:36)
[2022-01-03] MEDS: fluorouraciL 4,500 MG, elastomeric pump 1 PUMP in sodium chloride 0.9% (100 ml) 2 ML IV (14:46)
[2022-01-03 15:00] VITALS: BP 145/87; PULSE 77; RESP 18; TEMP 36.5; O2SAT 96
[2022-01-10 09:52] LABS: Basophils % 0.5 %; Eosinophils # 0.3 10^3/uL (0.0-0.8); Eosinophils % 7.2 %; Hematocrit 40.5 % (37.0-47.0); Hemoglobin 13.3 g/dL (11.5-15.3); Lymphocytes # 1.6 10^3/uL (0.8-4.8); Lymphocytes % 37.6 %; Mean Corpuscular HGB Conc 32.8 g/dL (30.0-36.0); Mean Corpuscular Hemoglobin 28.5 pg (28.0-34.0); Mean Corpuscular Volume 86.9 fl (81-99); Monocytes # 0.3 10^3/uL (0.2-0.9); Monocytes % 7.5 %; Neutrophils # 2.01 10^3/uL (1.8-7.7); Nucleated Red Blood Cells % 0 %; Platelet Count 215 10^3/cmm (130-400); Red Blood Count 4.66 10^6/uL (4.1-5.3); White Blood Count 4.3 10^3/uL (4.0-10.0)
[2022-01-10 10:15] LABS: Alanine Aminotransferase 14 U/L (0-33); Albumin Level 3.6 g/dL (3.5-5.2)
[2022-01-10 10:31] LABS: Alkaline Phosphatase 121 U/L (35-105); Aspartate Amino Transferase 12 U/L (0-32); Blood Urea Nitrogen 12 mg/dL (8-23); Calcium 9.2 mg/dL (8.5-10.5); Carbon Dioxide 24 mmol/L (22-29); Chloride 109 mmol/L (98-107); Glucose 99 mg/dL (65-115); Osmolality Calculated 292 mOsm/kg (285-295); Sodium 141 mmol/L (136-145); Total Bilirubin 0.5 mg/dL (0.15-1.2); Total Protein 5.6 g/dL (6.6-8.7)
== END 2022-01-11 23:59 | disposition home or self-care (01) ==
PROVIDERS: Nurse Practitioner Family; PCP Family Medicine; Visit Provider Internal Medicine Medical Oncology
DX: C18.7 Malignant neoplasm of sigmoid colon; F17.210 Nicotine dependence, cigarettes, uncomplicated; Z79.899 Other long term (current) drug therapy; Z90.49 Acquired absence of other specified parts of digestive tract
CPT/HCPCS: 36591; 80053; 82378; 85025; 96367; 96368; 96375; 96413; 96415; 96416; 96523; 99205; 99214; 99215; J0640; J1100; J2469; J9190; J9263

== ENCOUNTER → 2022-01-13 08:26 | Outpatient (BNVA) | payer OTHER, SELFPAY | PROVIDERS: PCP Nurse Practitioner; Visit Provider Surgery | DX: Z98.890 Other specified postprocedural states (principal); Z95.828 Presence of other vascular implants and grafts | CPT/HCPCS: 99213 ==

== ENCOUNTER → 2022-01-31 08:32 | Outpatient (BNVA) | payer OTHER, SELFPAY | PROVIDERS: PCP Nurse Practitioner; Visit Provider Nurse Practitioner | DX: C18.7 Malignant neoplasm of sigmoid colon (principal); R53.0 Neoplastic (malignant) related fatigue; G62.0 Drug-induced polyneuropathy; T45.1X5A Adverse effect of antineoplastic and immunosuppressive drugs, initial encounter; F17.210 Nicotine dependence, cigarettes, uncomplicated; Z79.899 Other long term (current) drug therapy | CPT/HCPCS: 99214 ==

== ENCOUNTER 2022-02-02 16:00 | Oncology outpatient (recurring) (ONCR) | payer OTHER, SELFPAY ==
[2022-01-17 09:27] LABS: Basophils % 0.7 %; Eosinophils # 0.2 10^3/uL (0.0-0.8); Eosinophils % 4.9 %; Hemoglobin 12.9 g/dL (11.5-15.3); Lymphocytes # 1.5 10^3/uL (0.8-4.8); Lymphocytes % 35.7 %; Mean Corpuscular HGB Conc 33.1 g/dL (30.0-36.0); Mean Corpuscular Hemoglobin 29.3 pg (28.0-34.0); Mean Corpuscular Volume 88.6 fl (81-99); Mean Platelet Volume 10.6 fL (7.4-10.4); Monocytes # 0.4 10^3/uL (0.2-0.9); Monocytes % 8.9 %; Neutrophils # 2.13 10^3/uL (1.8-7.7); Neutrophils % 49.6 %; Nucleated Red Blood Cells % 0 %; Platelet Count 246 10^3/cmm (130-400); Red Cell Distribution Width 13.7 % (12.1-15.1); White Blood Count 4.3 10^3/uL (4.0-10.0)
[2022-01-17 09:54] LABS: Alanine Aminotransferase 14 U/L (0-33); Albumin Level 3.9 g/dL (3.5-5.2); Alkaline Phosphatase 134 U/L (35-105); Anion Gap 12.4 (5-19); Aspartate Amino Transferase 18 U/L (0-32); Blood Urea Nitrogen 8 mg/dL (8-23); Calcium 8.7 mg/dL (8.5-10.5); Carbon Dioxide 23 mmol/L (22-29); Chloride 114 mmol/L (98-107); Globulin 1.9 g/dL (1.3-4.6); Glomerular Filtration Rate 125.4 mL/min (90-130); Glucose 104 mg/dL (65-115); Osmolality Calculated 299 mOsm/kg (285-295); Potassium 4.4 mmol/L (3.5-5.1); Sodium 145 mmol/L (136-145); Total Bilirubin 0.3 mg/dL (0.15-1.2); Total Protein 5.8 g/dL (6.6-8.7)
[2022-01-17] MEDS: dextrose 5% 250 ML 100 ML IV (11:04)
[2022-01-17] MEDS: palonosetron 0.25 mg/5 mL SDV IVP (11:05)
[2022-01-17] MEDS: leucovorin 750 MG in dextrose 5% 250 ML 81.25 MG IV (11:34)
[2022-01-17] MEDS: DEXTROSE 5% IV (11:35)
[2022-01-17] MEDS: OXALIPLATIN IV (11:35)
[2022-01-17] MEDS: fluorouraciL 4,500 MG, elastomeric pump 1 PUMP in sodium chloride 0.9% (100 ml) 2 ML IV (15:13)
[2022-01-17 15:18] VITALS: BP 112/78; PULSE 71; RESP 16; TEMP 36.2; O2SAT 97
[2022-01-19] MEDS: ondansetron 2 mg/ML SDV 2 mL 8 MG IVP (11:15)
[2022-01-19] MEDS: sodium chloride 0.9% 1,000 ML 999 ML IV (11:15)
[2022-01-19] MEDS: dexamethasone 10 mg/mL INJ 12 MG IVP (11:20)
[2022-01-19 11:30] VITALS: BP 133/86; PULSE 113; RESP 18; TEMP 36.9; O2SAT 99
[2022-01-19 11:49] LABS: SARS Covid-2 Antigen Negative (Negative)
[2022-01-19 12:11] LABS: Influenza A by IFA Negative (Negative); Influenza B by IFA Negative (Negative)
[2022-01-31 08:57] VITALS: BMI 28.6
[2022-01-31 09:06] LABS: Basophils # 0.1 10^3/uL (0.0-0.1); Basophils % 1.3 %; Eosinophils # 0.1 10^3/uL (0.0-0.8); Eosinophils % 2.9 %; Hematocrit 40.5 % (37.0-47.0); Hemoglobin 13.3 g/dL (11.5-15.3); Lymphocytes # 1.4 10^3/uL (0.8-4.8); Lymphocytes % 29.1 %; Mean Corpuscular HGB Conc 32.8 g/dL (30.0-36.0); Mean Corpuscular Hemoglobin 29.3 pg (28.0-34.0); Mean Corpuscular Volume 89.2 fl (81-99); Monocytes # 0.6 10^3/uL (0.2-0.9); Monocytes % 11.6 %; Neutrophils # 2.61 10^3/uL (1.8-7.7); Neutrophils % 54.9 %; Nucleated Red Blood Cells % 0 %; Platelet Count 207 10^3/cmm (130-400); Red Blood Count 4.54 10^6/uL (4.1-5.3); Red Cell Distribution Width 14.2 % (12.1-15.1); White Blood Count 4.8 10^3/uL (4.0-10.0)
[2022-01-31 09:22] LABS: Alanine Aminotransferase 13 U/L (0-33); Albumin Level 3.4 g/dL (3.5-5.2); Alkaline Phosphatase 138 U/L (35-105); Anion Gap 12.3 (5-19); Aspartate Amino Transferase 31 U/L (0-32); Blood Urea Nitrogen 12 mg/dL (8-23); Carbon Dioxide 23 mmol/L (22-29); Chloride 109 mmol/L (98-107); Globulin 2.5 g/dL (1.3-4.6); Glomerular Filtration Rate 85.1 mL/min (90-130); Glucose 101 mg/dL (65-115); Osmolality Calculated 290 mOsm/kg (285-295); Potassium 4.3 mmol/L (3.5-5.1); Sodium 140 mmol/L (136-145); Total Bilirubin 0.3 mg/dL (0.15-1.2); Total Protein 5.9 g/dL (6.6-8.7)
[2022-01-31] MEDS: dextrose 5% 250 ML 75 ML IV (10:30)
[2022-01-31] MEDS: palonosetron 0.25 mg/5 mL SDV IVP (10:32)
[2022-01-31] MEDS: leucovorin 750 MG in dextrose 5% 250 ML 81.25 MG IV (10:56)
[2022-01-31] MEDS: fluorouraciL 4,500 MG, elastomeric pump 1 PUMP in sodium chloride 0.9% (100 ml) 2 ML IV (14:57)
[2022-01-31 15:28] VITALS: BP 124/68; PULSE 66; RESP 16; TEMP 36.4; O2SAT 98
[2022-02-02 16:10] VITALS: BP 114/80; PULSE 78; RESP 16; TEMP 36.6; O2SAT 99
== END 2022-02-10 23:59 | disposition home or self-care (01) ==
PROVIDERS: Nurse Practitioner; Nurse Practitioner Family; PCP Nurse Practitioner; Visit Provider Internal Medicine Medical Oncology
DX: Z45.2 Encounter for adjustment and management of vascular access device (principal)
CPT/HCPCS: 80053; 85025; 87426; 87804; 96365; 96367; 96368; 96375; 96413; 96415; 96416; 96523; 99214; J0640; J1100; J2405; J2469; J7030; J9190; J9263

== ENCOUNTER 2022-03-02 13:00 | Oncology outpatient (recurring) (ONCR) | payer OTHER, SELFPAY ==
[2022-02-14 08:17] VITALS: BMI 28.6
[2022-02-14 08:24] LABS: Basophils % 0.9 %; Eosinophils # 0.2 10^3/uL (0.0-0.8); Eosinophils % 6.6 %; Hematocrit 40.8 % (37.0-47.0); Hemoglobin 13.3 g/dL (11.5-15.3); Lymphocytes # 1.3 10^3/uL (0.8-4.8); Lymphocytes % 38.3 %; Mean Corpuscular HGB Conc 32.6 g/dL (30.0-36.0); Mean Corpuscular Volume 89.1 fl (81-99); Mean Platelet Volume 10.7 fL (7.4-10.4); Monocytes # 0.4 10^3/uL (0.2-0.9); Monocytes % 12.1 %; Neutrophils # 1.45 10^3/uL (1.8-7.7); Neutrophils % 41.8 %; Nucleated Red Blood Cells % 0 %; Platelet Count 179 10^3/cmm (130-400); Red Blood Count 4.58 10^6/uL (4.1-5.3); Red Cell Distribution Width 14.8 % (12.1-15.1); White Blood Count 3.5 10^3/uL (4.0-10.0)
[2022-02-14 08:51] LABS: Alanine Aminotransferase 41 U/L (0-33); Albumin Level 3.7 g/dL (3.5-5.2); Alkaline Phosphatase 134 U/L (35-105); Anion Gap 12.2 (5-19); Aspartate Amino Transferase 33 U/L (0-32); Blood Urea Nitrogen 9 mg/dL (8-23); Calcium 9.3 mg/dL (8.5-10.5); Carbon Dioxide 24 mmol/L (22-29); Chloride 108 mmol/L (98-107); Globulin 2.1 g/dL (1.3-4.6); Glomerular Filtration Rate 101.6 mL/min (90-130); Glucose 107 mg/dL (65-115); Osmolality Calculated 289 mOsm/kg (285-295); Potassium 4.2 mmol/L (3.5-5.1); Sodium 140 mmol/L (136-145); Total Bilirubin 0.4 mg/dL (0.15-1.2); Total Protein 5.8 g/dL (6.6-8.7)
[2022-02-14] MEDS: dextrose 5% 250 ML 75 ML IV (10:03)
[2022-02-14] MEDS: palonosetron 0.25 mg/5 mL SDV IVP (10:06)
[2022-02-14] MEDS: oxaliplatin 100 MG, oxaliplatin 40 MG in dextrose 5% 250 ML 69.5 MG IV (10:53)
[2022-02-14] MEDS: leucovorin 750 MG in dextrose 5% 250 ML 81.25 MG IV (10:53)
[2022-02-14] MEDS: fluorouraciL 4,500 MG, elastomeric pump 1 PUMP in sodium chloride 0.9% (100 ml) 2 ML IV (15:00)
[2022-02-14 15:13] VITALS: BP 154/89; PULSE 81; RESP 18; TEMP 36.2; O2SAT 97
[2022-02-28 08:40] LABS: Basophils # 0.1 10^3/uL (0.0-0.1); Basophils % 1.6 %; Eosinophils # 0.2 10^3/uL (0.0-0.8); Eosinophils % 5.1 %; Hematocrit 39.4 % (37.0-47.0); Hemoglobin 13.1 g/dL (11.5-15.3); Lymphocytes # 1.3 10^3/uL (0.8-4.8); Lymphocytes % 33.9 %; Mean Corpuscular HGB Conc 33.2 g/dL (30.0-36.0); Mean Corpuscular Hemoglobin 29.5 pg (28.0-34.0); Mean Corpuscular Volume 88.7 fl (81-99); Mean Platelet Volume 11.5 fL (7.4-10.4); Monocytes # 0.4 10^3/uL (0.2-0.9); Monocytes % 11.9 %; Neutrophils # 1.75 10^3/uL (1.8-7.7); Neutrophils % 47.5 %; Nucleated Red Blood Cells % 0 %; Platelet Count 171 10^3/cmm (130-400); Red Blood Count 4.44 10^6/uL (4.1-5.3); Red Cell Distribution Width 14.7 % (12.1-15.1); White Blood Count 3.7 10^3/uL (4.0-10.0)
[2022-02-28 08:52] LABS: Alanine Aminotransferase 31 U/L (0-33); Albumin Level 3.7 g/dL (3.5-5.2); Alkaline Phosphatase 148 U/L (35-105); Anion Gap 13.2 (5-19); Aspartate Amino Transferase 42 U/L (0-32); Blood Urea Nitrogen 8 mg/dL (8-23); Calcium 9.2 mg/dL (8.5-10.5); Carbon Dioxide 23 mmol/L (22-29); Chloride 109 mmol/L (98-107); Globulin 2.4 g/dL (1.3-4.6); Glomerular Filtration Rate 101.6 mL/min (90-130); Glucose 113 mg/dL (65-115); Osmolality Calculated 291 mOsm/kg (285-295); Potassium 4.2 mmol/L (3.5-5.1); Sodium 141 mmol/L (136-145); Total Bilirubin 0.4 mg/dL (0.15-1.2); Total Protein 6.1 g/dL (6.6-8.7)
[2022-02-28] MEDS: dextrose 5% 250 ML 100 ML IV (09:26)
[2022-02-28] MEDS: palonosetron 0.25 mg/5 mL SDV IVP (09:27)
[2022-02-28] MEDS: oxaliplatin 100 MG, oxaliplatin 40 MG in dextrose 5% 250 ML 69.5 MG IV (09:56)
[2022-02-28] MEDS: leucovorin 750 MG in dextrose 5% 250 ML 62.5 MG IV (09:56)
[2022-02-28] MEDS: fluorouraciL 4,500 MG, elastomeric pump 1 PUMP in sodium chloride 0.9% (100 ml) 2 ML IV (13:24)
[2022-02-28 13:31] VITALS: BP 151/85; PULSE 95; RESP 18; TEMP 36.4; O2SAT 97
[2022-03-02 13:10] VITALS: BP 148/89; PULSE 84; RESP 18; TEMP 36.6; O2SAT 98
== END 2022-03-13 23:59 | disposition home or self-care (01) ==
PROVIDERS: PCP Nurse Practitioner; Visit Provider Internal Medicine Medical Oncology
DX: Z45.2 Encounter for adjustment and management of vascular access device (principal)
CPT/HCPCS: 80053; 85025; 96367; 96368; 96375; 96413; 96415; 96416; 96523; 99214; J0640; J1100; J2469; J9190; J9263

== ENCOUNTER 2022-04-05 14:32 | Outpatient (CLI) | payer OTHER, SELFPAY ==
[2022-04-05] MEDS: iohexol 350 mg/mL 100 mL Btl IV (15:10)
[2022-04-05] MEDS: iohexol 350 mg/mL 500 mL Btl (per mL) PO (15:14)
--- NOTE | 2022-04-05 16:00 | CTR_ITS ---
PROCEDURE INFORMATION: Exam: CT Abdomen And Pelvis With Contrast Exam date and time: 04/05/2022 3:59 PM Age: 62 years old Clinical indication: Abnormal findings; Abnormal lab test; Elevated liver enzymes; Prior surgery; Surgery type: Colon resection; Patient HX: History of colon cancer TECHNIQUE: Imaging protocol: Computed tomography of the abdomen and pelvis with contrast. Radiation optimization: All CT scans at this facility use at least one of these dose optimization techniques: automated exposure control; mA and/or kV adjustment per patient size (includes targeted exams where dose is matched to clinical indication); or iterative reconstruction. Contrast material: OMNI 350; Contrast volume: 95 ml; Contrast route: INTRAVENOUS (IV); COMPARISON: CT abdomen pelvis w con* [id number] 08/22/2021 10:58 AM RADIATION DOSE METRICS: Total DLP (mGy-cm): 1073.93 FINDINGS: Lungs: Lung bases are clear. Liver: There is no focal abnormality within the liver. Gallbladder and bile ducts: The gallbladder is normal. Pancreas: The pancreas is normal. Spleen: The spleen is normal. Adrenal glands: The adrenal glands are normal. Kidneys and ureters: The kidneys are normal. There is no evidence of hydronephrosis. There is no evidence of renal or ureteral calcifications. Stomach and bowel: There are small fatty lesions of the 2nd and 3rd portions of the duodenum not changed from previous likely benign lipomas. There may also may be an additional 1 cm sized lipoma in the jejunum. There are postsurgical changes of partial sigmoid colon resection. Mass seen on the previous exam no longer identified. There is no evidence of colitis/diverticulitis. There is no evidence of intestinal obstruction. Appendix: A normal appendix is identified. Intraperitoneal space: There is no evidence of free intraperitoneal fluid. Vasculature: The aorta demonstrates mild atherosclerotic calcification. There is no evidence of an abdominal aortic aneurysm. Lymph nodes: There is a mesenteric lymph node measuring 7 x 15 mm and another 8 x 14 mm and other mildly prominent subcentimeter mesenteric lymph nodes which are slightly larger than on 08/22/2021. (series 3, images 36 and 37) no definite adenopathy. Urinary bladder: Unremarkable as visualized. Reproductive: Unremarkable as visualized. Bones/joints: Unremarkable. No acute fracture. Soft tissues: There is a small wide mouth periumbilical hernia which contains small portion of bowel without evidence of incarceration or obstruction. CT/CT abdomen pelvis w con* [id number] IMPRESSION: 1. No acute findings. 2. Borderline increase in mesenteric lymph nodes. 3. No hepatic metastasis or lesions identified.
== END 2022-04-05 14:33 | disposition home or self-care (01) ==
LOC: RAD 14:34
PROVIDERS: PCP Nurse Practitioner; Visit Provider Internal Medicine Medical Oncology
DX: R74.8 Abnormal levels of other serum enzymes (principal)
CPT/HCPCS: 74177; Q9967

== ENCOUNTER 2022-04-11 08:00 | Oncology outpatient (recurring) (ONCR) | payer OTHER, SELFPAY ==
[2022-03-14 09:19] LABS: Basophils % 1.3 %; Eosinophils # 0.2 10^3/uL (0.0-0.8); Eosinophils % 5.3 %; Hematocrit 37.6 % (37.0-47.0); Hemoglobin 12.5 g/dL (11.5-15.3); Lymphocytes # 1.1 10^3/uL (0.8-4.8); Mean Corpuscular HGB Conc 33.2 g/dL (30.0-36.0); Mean Corpuscular Hemoglobin 29.6 pg (28.0-34.0); Mean Corpuscular Volume 88.9 fl (81-99); Monocytes # 0.4 10^3/uL (0.2-0.9); Monocytes % 12.2 %; Neutrophils # 1.33 10^3/uL (1.8-7.7); Neutrophils % 43.9 %; Nucleated Red Blood Cells % 0 %; Platelet Count 143 10^3/cmm (130-400); Red Blood Count 4.23 10^6/uL (4.1-5.3); Red Cell Distribution Width 14.6 % (12.1-15.1)
[2022-03-14 09:44] LABS: Carcinoembryonic Antigen 4.1 ng/mL (0.0-4.7)
[2022-03-14 09:56] LABS: Alanine Aminotransferase 39 U/L (0-33); Albumin Level 3.5 g/dL (3.5-5.2); Alkaline Phosphatase 150 U/L (35-105); Aspartate Amino Transferase 32 U/L (0-32); Blood Urea Nitrogen 11 mg/dL (8-23); Calcium 9.1 mg/dL (8.5-10.5); Carbon Dioxide 22 mmol/L (22-29); Chloride 109 mmol/L (98-107); Globulin 2.3 g/dL (1.3-4.6); Glomerular Filtration Rate 101.6 mL/min (90-130); Glucose 125 mg/dL (65-115); Osmolality Calculated 293 mOsm/kg (285-295); Sodium 141 mmol/L (136-145); Total Bilirubin 0.3 mg/dL (0.15-1.2); Total Protein 5.8 g/dL (6.6-8.7)
[2022-03-14] MEDS: dextrose 5% 250 ML 75 ML IV (10:59)
[2022-03-14] MEDS: palonosetron 0.25 mg/5 mL SDV IVP (11:03)
[2022-03-14] MEDS: oxaliplatin 100 MG, oxaliplatin 40 MG in dextrose 5% 250 ML 69.5 MG IV (11:23)
[2022-03-14] MEDS: leucovorin 750 MG in dextrose 5% 250 ML 62.5 MG IV (11:24)
[2022-03-14 11:30] VITALS: BMI 28.8
[2022-03-14 15:10] VITALS: BP 150/67; PULSE 73; RESP 17; TEMP 36.8; O2SAT 99
[2022-03-14] MEDS: fluorouraciL 4,500 MG, elastomeric pump 1 PUMP in sodium chloride 0.9% (100 ml) 2 ML IV (15:12)
[2022-03-28 08:22] LABS: Basophils % 0.7 %; Eosinophils # 0.1 10^3/uL (0.0-0.8); Eosinophils % 2.2 %; Hematocrit 41.8 % (37.0-47.0); Hemoglobin 13.8 g/dL (11.5-15.3); Lymphocytes # 1.7 10^3/uL (0.8-4.8); Lymphocytes % 29.9 %; Mean Corpuscular Hemoglobin 29.4 pg (28.0-34.0); Mean Corpuscular Volume 88.9 fl (81-99); Mean Platelet Volume 11.5 fL (7.4-10.4); Monocytes # 0.7 10^3/uL (0.2-0.9); Monocytes % 12.4 %; Neutrophils # 3.17 10^3/uL (1.8-7.7); Neutrophils % 54.5 %; Nucleated Red Blood Cells % 0 %; Platelet Count 189 10^3/cmm (130-400); Red Cell Distribution Width 15.2 % (12.1-15.1); White Blood Count 5.8 10^3/uL (4.0-10.0)
[2022-03-28 08:40] LABS: Alanine Aminotransferase 47 U/L (0-33); Albumin Level 3.6 g/dL (3.5-5.2); Alkaline Phosphatase 181 U/L (35-105); Anion Gap 14.5 (5-19); Aspartate Amino Transferase 46 U/L (0-32); Blood Urea Nitrogen 8 mg/dL (8-23); Calcium 9.5 mg/dL (8.5-10.5); Carbon Dioxide 22 mmol/L (22-29); Chloride 110 mmol/L (98-107); Globulin 3.1 g/dL (1.3-4.6); Glomerular Filtration Rate 101.6 mL/min (90-130); Glucose 112 mg/dL (65-115); Osmolality Calculated 293 mOsm/kg (285-295); Potassium 4.5 mmol/L (3.5-5.1); Sodium 142 mmol/L (136-145); Total Bilirubin 0.5 mg/dL (0.15-1.2); Total Protein 6.7 g/dL (6.6-8.7)
[2022-03-29] MEDS: dextrose 5% 250 ML 100 ML IV (09:38)
[2022-03-29] MEDS: palonosetron 0.25 mg/5 mL SDV IVP (09:39)
[2022-03-29] MEDS: leucovorin 750 MG in dextrose 5% 250 ML 62.5 MG IV (10:12)
[2022-03-29] MEDS: oxaliplatin 100 MG, oxaliplatin 40 MG in dextrose 5% 250 ML 69.5 MG IV (10:13)
[2022-03-29 11:09] VITALS: BP 166/87; PULSE 68; RESP 16; TEMP 36.9; O2SAT 99
[2022-03-29 11:30] VITALS: BP 123/76; PULSE 71; RESP 16; TEMP 36.7; O2SAT 97
[2022-03-29 12:08] VITALS: BP 160/79; PULSE 69; RESP 16; TEMP 36.7; O2SAT 95
[2022-03-29] MEDS: fluorouraciL 4,500 MG, elastomeric pump 1 PUMP in sodium chloride 0.9% (100 ml) 2 ML IV (12:24)
[2022-03-29 12:30] VITALS: BP 153/80; PULSE 73; RESP 16; TEMP 37; O2SAT 96
--- NOTE | 2022-03-29 13:26 | PC.NURSE ---
1109: Pt called for nurses, states she is very dizzy and head and vision are swimmy pt had been on oxaliplatin approximately 1 hour, infusion immediately stopped, normal saline intiated at 250 ml/hr. dr maloney retrieved, VS obtained, see VS flowsheet. After discussion and physician assessment, oxaliplatin and leucovrin discontinued for today. pt advisied to be monitored for a while. 1130: Pt VS more stable, states she is feeling much better. will monitor. 1210: Pt vs stable, BP high, pt states she still has a headache but is no longer dizzy. Dr maloney consulted, pt is free to continue with 5fu pump and leave if comfortable with plan. pt agrees with plan. 1230: Pt discharged with 5fu pump in place, return appt given,
[2022-03-31 12:27] VITALS: BP 123/75; PULSE 92; RESP 16; TEMP 36.7; O2SAT 98
[2022-04-11 08:21] LABS: Basophils % 0.8 %; Eosinophils # 0.3 10^3/uL (0.0-0.8); Hematocrit 39.1 % (37.0-47.0); Lymphocytes # 1.1 10^3/uL (0.8-4.8); Lymphocytes % 28.2 %; Mean Corpuscular HGB Conc 33.2 g/dL (30.0-36.0); Mean Corpuscular Hemoglobin 30.2 pg (28.0-34.0); Mean Corpuscular Volume 90.7 fl (81-99); Monocytes # 0.4 10^3/uL (0.2-0.9); Monocytes % 11.6 %; Neutrophils # 1.94 10^3/uL (1.8-7.7); Neutrophils % 52.1 %; Nucleated Red Blood Cells % 0 %; Platelet Count 148 10^3/cmm (130-400); Red Blood Count 4.31 10^6/uL (4.1-5.3); Red Cell Distribution Width 14.9 % (12.1-15.1); White Blood Count 3.7 10^3/uL (4.0-10.0)
[2022-04-11 08:43] LABS: Alanine Aminotransferase 28 U/L (0-33); Albumin Level 3.5 g/dL (3.5-5.2); Alkaline Phosphatase 169 U/L (35-105); Anion Gap 12.2 (5-19); Aspartate Amino Transferase 25 U/L (0-32); Blood Urea Nitrogen 9 mg/dL (8-23); Calcium 9.2 mg/dL (8.5-10.5); Carbon Dioxide 22 mmol/L (22-29); Chloride 110 mmol/L (98-107); Creatinine Clr Calc Pharmacy 122.7218; Globulin 2.5 g/dL (1.3-4.6); Glomerular Filtration Rate 125.4 mL/min (90-130); Glucose 114 mg/dL (65-115); Osmolality Calculated 290 mOsm/kg (285-295); Potassium 4.2 mmol/L (3.5-5.1); Sodium 140 mmol/L (136-145); Total Bilirubin 0.3 mg/dL (0.15-1.2)
[2022-04-11] MEDS: dextrose 5% 250 ML 75 ML IV (09:32)
[2022-04-11] MEDS: ondansetron 2 mg/ML SDV 2 mL 8 MG IVP (09:34)
[2022-04-11] MEDS: leucovorin 750 MG in dextrose 5% 250 ML IV (10:14)
[2022-04-11 10:51] VITALS: BP 150/85; PULSE 69; RESP 16; TEMP 36.2; O2SAT 99
[2022-04-11] MEDS: fluorouraciL 50 mg/ml MDV 100 mL 750 MG IVP (10:56)
[2022-04-11] MEDS: fluorouraciL 4,500 MG, elastomeric pump 1 PUMP in sodium chloride 0.9% (100 ml) 2 ML IV (10:56)
== END 2022-04-12 23:59 | disposition home or self-care (01) ==
PROVIDERS: PCP Nurse Practitioner; Visit Provider Internal Medicine Medical Oncology
DX: Z51.11 Encounter for antineoplastic chemotherapy (principal); C18.7 Malignant neoplasm of sigmoid colon; R53.0 Neoplastic (malignant) related fatigue; G62.0 Drug-induced polyneuropathy; T45.1X5A Adverse effect of antineoplastic and immunosuppressive drugs, initial encounter; D70.1 Agranulocytosis secondary to cancer chemotherapy; R74.01 Elevation of levels of liver transaminase levels; F41.9 Anxiety disorder, unspecified; Z79.899 Other long term (current) drug therapy
CPT/HCPCS: 36591; 80053; 82378; 85025; 96367; 96368; 96375; 96409; 96413; 96415; 96416; 96523; 99214; J0640; J1100; J2405; J2469; J7060; J9190; J9263

== ENCOUNTER 2022-05-11 08:30 | Oncology outpatient (recurring) (ONCR) | payer OTHER, SELFPAY ==
--- NOTE | 2022-04-13 09:09 | PC.NURSE ---
per patient she is flu positive, day 3 of symptoms, states she got it at work from a co worker. pt denies any further needs at this time
[2022-04-25 09:02] VITALS: BMI 29.1
[2022-04-25 09:50] LABS: Basophils % 0.7 %; Eosinophils # 0.2 10^3/uL (0.0-0.8); Hematocrit 37.3 % (37.0-47.0); Hemoglobin 12.1 g/dL (11.5-15.3); Lymphocytes % 34.4 %; Mean Corpuscular HGB Conc 32.4 g/dL (30.0-36.0); Mean Corpuscular Hemoglobin 29.4 pg (28.0-34.0); Mean Corpuscular Volume 90.8 fl (81-99); Mean Platelet Volume 10.3 fL (7.4-10.4); Monocytes # 0.4 10^3/uL (0.2-0.9); Monocytes % 13.4 %; Neutrophils # 1.33 10^3/uL (1.8-7.7); Neutrophils % 44.5 %; Nucleated Red Blood Cells % 0 %; Platelet Count 190 10^3/cmm (130-400); Red Blood Count 4.11 10^6/uL (4.1-5.3); Red Cell Distribution Width 15.2 % (12.1-15.1)
[2022-04-25 10:04] LABS: Alanine Aminotransferase 22 U/L (0-33); Albumin Level 3.5 g/dL (3.5-5.2); Alkaline Phosphatase 140 U/L (35-105); Anion Gap 13.3 (5-19); Aspartate Amino Transferase 26 U/L (0-32); Blood Urea Nitrogen 11 mg/dL (8-23); Calcium 9.1 mg/dL (8.5-10.5); Carbon Dioxide 23 mmol/L (22-29); Chloride 112 mmol/L (98-107); Globulin 1.7 g/dL (1.3-4.6); Glomerular Filtration Rate 101.6 mL/min (90-130); Glucose 109 mg/dL (65-115); Osmolality Calculated 298 mOsm/kg (285-295); Potassium 4.3 mmol/L (3.5-5.1); Sodium 144 mmol/L (136-145); Total Bilirubin 0.3 mg/dL (0.15-1.2); Total Protein 5.2 g/dL (6.6-8.7)
[2022-04-25] MEDS: dextrose 5% 250 ML 75 ML IV (10:28)
[2022-04-25] MEDS: ondansetron 2 mg/ML SDV 2 mL 8 MG IVP (10:32)
[2022-04-25] MEDS: leucovorin 750 MG in dextrose 5% 250 ML 62.5 MG IV (11:00)
[2022-04-25] MEDS: fluorouraciL 50 mg/ml MDV 100 mL 750 MG IVP (11:54)
[2022-04-25] MEDS: fluorouraciL 4,500 MG, elastomeric pump 1 PUMP in sodium chloride 0.9% (100 ml) 2 ML IV (11:56)
[2022-04-25 12:23] VITALS: BP 158/84; PULSE 68; RESP 18; TEMP 36.2; O2SAT 96
[2022-04-27 12:10] VITALS: BP 141/84; PULSE 80; RESP 16; TEMP 36.1; O2SAT 97
[2022-05-09 08:46] VITALS: BMI 29.1
[2022-05-09 08:56] LABS: Eosinophils # 0.2 10^3/uL (0.0-0.8); Eosinophils % 5.2 %; Hematocrit 37.7 % (37.0-47.0); Hemoglobin 12.5 g/dL (11.5-15.3); Lymphocytes # 1.5 10^3/uL (0.8-4.8); Lymphocytes % 36.6 %; Mean Corpuscular HGB Conc 33.2 g/dL (30.0-36.0); Mean Corpuscular Volume 90.6 fl (81-99); Monocytes # 0.5 10^3/uL (0.2-0.9); Monocytes % 12.5 %; Neutrophils # 1.81 10^3/uL (1.8-7.7); Neutrophils % 44.5 %; Nucleated Red Blood Cells % 0 %; Platelet Count 198 10^3/cmm (130-400); Red Blood Count 4.16 10^6/uL (4.1-5.3); Red Cell Distribution Width 15.2 % (12.1-15.1); White Blood Count 4.1 10^3/uL (4.0-10.0)
[2022-05-09 09:22] LABS: Alanine Aminotransferase 16 U/L (0-33); Albumin Level 3.7 g/dL (3.5-5.2); Alkaline Phosphatase 166 U/L (35-105); Anion Gap 10.7 (5-19); Aspartate Amino Transferase 20 U/L (0-32); Blood Urea Nitrogen 9 mg/dL (8-23); Calcium 8.8 mg/dL (8.5-10.5); Carbon Dioxide 26 mmol/L (22-29); Chloride 108 mmol/L (98-107); Glomerular Filtration Rate 101.6 mL/min (90-130); Glucose 112 mg/dL (65-115); Osmolality Calculated 291 mOsm/kg (285-295); Potassium 3.7 mmol/L (3.5-5.1); Sodium 141 mmol/L (136-145); Total Bilirubin 0.3 mg/dL (0.15-1.2); Total Protein 5.7 g/dL (6.6-8.7)
[2022-05-09] MEDS: dextrose 5% 250 ML 75 ML IV (10:42)
[2022-05-09] MEDS: leucovorin 750 MG in dextrose 5% 250 ML 62.5 MG IV (11:10)
[2022-05-09] MEDS: fluorouraciL 4,500 MG, elastomeric pump 1 PUMP in sodium chloride 0.9% (100 ml) 2 ML IV (11:59)
[2022-05-09] MEDS: fluorouraciL 50 mg/ml MDV 100 mL 750 MG IVP (11:59)
[2022-05-11 08:31] VITALS: BP 139/83; PULSE 103; RESP 18; TEMP 36.7; O2SAT 99
== END 2022-05-13 23:59 | disposition home or self-care (01) ==
PROVIDERS: PCP Nurse Practitioner; Visit Provider Internal Medicine Medical Oncology
DX: C18.7 Malignant neoplasm of sigmoid colon (principal); C77.8 Secondary and unspecified malignant neoplasm of lymph nodes of multiple regions; Z79.899 Other long term (current) drug therapy
CPT/HCPCS: 80053; 85025; 96367; 96375; 96409; 96416; 96523; 99214; J0640; J2405; J7060; J9190

== ENCOUNTER → 2022-05-23 08:24 | Outpatient (BNVA) | payer OTHER, SELFPAY | PROVIDERS: PCP Nurse Practitioner; Visit Provider Internal Medicine Medical Oncology | DX: C18.7 Malignant neoplasm of sigmoid colon (principal) | CPT/HCPCS: 99214 ==

== ENCOUNTER 2022-06-08 12:00 | Oncology outpatient (recurring) (ONCR) | payer OTHER, SELFPAY ==
[2022-05-23 08:48] VITALS: BMI 28.8
[2022-05-23 08:52] LABS: Basophils % 0.9 %; Eosinophils # 0.2 10^3/uL (0.0-0.8); Eosinophils % 5.6 %; Hematocrit 40.3 % (37.0-47.0); Hemoglobin 13.3 g/dL (11.5-15.3); Lymphocytes # 1.2 10^3/uL (0.8-4.8); Lymphocytes % 35.1 %; Mean Corpuscular Volume 90.8 fl (81-99); Mean Platelet Volume 10.5 fL (7.4-10.4); Monocytes # 0.4 10^3/uL (0.2-0.9); Monocytes % 11.4 %; Neutrophils % 46.7 %; Nucleated Red Blood Cells % 0 %; Platelet Count 212 10^3/cmm (130-400); Red Blood Count 4.44 10^6/uL (4.1-5.3); Red Cell Distribution Width 15.5 % (12.1-15.1); White Blood Count 3.4 10^3/uL (4.0-10.0)
[2022-05-23 09:14] LABS: Alanine Aminotransferase 18 U/L (0-33); Alkaline Phosphatase 168 U/L (35-105); Anion Gap 14.1 (5-19); Aspartate Amino Transferase 20 U/L (0-32); Blood Urea Nitrogen 10 mg/dL (8-23); Carbon Dioxide 23 mmol/L (22-29); Chloride 110 mmol/L (98-107); Globulin 2.1 g/dL (1.3-4.6); Glomerular Filtration Rate 85.1 mL/min (90-130); Glucose 128 mg/dL (65-115); Osmolality Calculated 297 mOsm/kg (285-295); Potassium 4.1 mmol/L (3.5-5.1); Sodium 143 mmol/L (136-145); Total Bilirubin 0.4 mg/dL (0.15-1.2); Total Protein 6.1 g/dL (6.6-8.7)
[2022-05-23] MEDS: dextrose 5% 250 ML 50 ML IV (10:41)
[2022-05-23] MEDS: leucovorin 750 MG in dextrose 5% 250 ML 62.5 MG IV (11:13)
[2022-05-23] MEDS: fluorouraciL 50 mg/ml MDV 100 mL 750 MG IVP (11:59)
[2022-05-23] MEDS: fluorouraciL 4,500 MG, elastomeric pump 1 PUMP in sodium chloride 0.9% (100 ml) 2 ML IV (12:00)
[2022-05-23 12:20] VITALS: BP 144/85; PULSE 75; RESP 16; TEMP 36.1; O2SAT 98
[2022-05-25 08:40] VITALS: BP 133/88; PULSE 98; RESP 18; TEMP 36.7; O2SAT 99
[2022-06-06 08:57] VITALS: BMI 28.6
[2022-06-06 09:04] LABS: Eosinophils # 0.2 10^3/uL (0.0-0.8); Eosinophils % 5.8 %; Hematocrit 40.4 % (37.0-47.0); Hemoglobin 13.2 g/dL (11.5-15.3); Lymphocytes # 1.5 10^3/uL (0.8-4.8); Mean Corpuscular HGB Conc 32.7 g/dL (30.0-36.0); Mean Corpuscular Hemoglobin 29.6 pg (28.0-34.0); Mean Corpuscular Volume 90.6 fl (81-99); Mean Platelet Volume 10.8 fL (7.4-10.4); Monocytes # 0.6 10^3/uL (0.2-0.9); Monocytes % 14.1 %; Neutrophils # 1.67 10^3/uL (1.8-7.7); Neutrophils % 42.1 %; Nucleated Red Blood Cells % 0 %; Platelet Count 205 10^3/cmm (130-400); Red Blood Count 4.46 10^6/uL (4.1-5.3); Red Cell Distribution Width 15.3 % (12.1-15.1)
[2022-06-06 09:27] LABS: Alanine Aminotransferase 19 U/L (0-33); Alkaline Phosphatase 168 U/L (35-105); Anion Gap 13.3 (5-19); Aspartate Amino Transferase 25 U/L (0-32); Blood Urea Nitrogen 13 mg/dL (8-23); Calcium 8.9 mg/dL (8.5-10.5); Carbon Dioxide 23 mmol/L (22-29); Chloride 106 mmol/L (98-107); Globulin 2.3 g/dL (1.3-4.6); Glomerular Filtration Rate 85.1 mL/min (90-130); Glucose 120 mg/dL (65-115); Osmolality Calculated 287 mOsm/kg (285-295); Potassium 4.3 mmol/L (3.5-5.1); Sodium 138 mmol/L (136-145); Total Bilirubin 0.5 mg/dL (0.15-1.2); Total Protein 6.3 g/dL (6.6-8.7)
[2022-06-06] MEDS: dextrose 5% 250 ML 75 ML IV (11:26)
[2022-06-06] MEDS: leucovorin 750 MG in dextrose 5% 250 ML 62.5 MG IV (12:11)
[2022-06-06] MEDS: fluorouraciL 50 mg/ml MDV 100 mL 750 MG IVP (12:56)
[2022-06-06] MEDS: fluorouraciL 4,500 MG, elastomeric pump 1 PUMP in sodium chloride 0.9% (100 ml) 2 ML IV (13:00)
[2022-06-06 13:10] VITALS: BP 145/92; PULSE 65; RESP 16; TEMP 35.7; O2SAT 99
[2022-06-08 12:13] VITALS: BP 128/84; PULSE 102; RESP 16; TEMP 36.6; O2SAT 98
--- NOTE | 2022-06-08 12:26 | PC.NURSE ---
Patient came in to get her chemo pump unhooked and complained of having nausea and some vomiting. This nurse offered hydration and she refused to get it. This nurse let the patient know that if it gets any worse to give us a call. Patient and daughter acknowledged understanding and how no other questions.
== END 2022-06-13 23:59 | disposition home or self-care (01) ==
PROVIDERS: PCP Nurse Practitioner; Visit Provider Internal Medicine Medical Oncology
DX: C18.7 Malignant neoplasm of sigmoid colon (principal); Z45.2 Encounter for adjustment and management of vascular access device; Z95.828 Presence of other vascular implants and grafts
CPT/HCPCS: 80053; 85025; 96367; 96409; 96416; 96523; 99214; J0640; J7060; J9190

== ENCOUNTER → 2022-07-04 08:25 | Outpatient (BNVA) | payer OTHER, SELFPAY | PROVIDERS: PCP Nurse Practitioner; Visit Provider Internal Medicine Medical Oncology | DX: C18.7 Malignant neoplasm of sigmoid colon (principal) | CPT/HCPCS: 99214 ==

== ENCOUNTER 2022-07-05 11:30 | Oncology outpatient (recurring) (ONCR) | payer OTHER, SELFPAY ==
[2022-07-04 08:49] VITALS: BMI 29.2
[2022-07-04 08:51] LABS: Basophils % 0.8 %; Eosinophils # 0.2 10^3/uL (0.0-0.8); Eosinophils % 5.7 %; Hematocrit 39.4 % (37.0-47.0); Hemoglobin 12.7 g/dL (11.5-15.3); Lymphocytes # 1.3 10^3/uL (0.8-4.8); Lymphocytes % 32.8 %; Mean Corpuscular HGB Conc 32.2 g/dL (30.0-36.0); Mean Corpuscular Hemoglobin 29.6 pg (28.0-34.0); Mean Corpuscular Volume 91.8 fl (81-99); Mean Platelet Volume 11.4 fL (7.4-10.4); Monocytes # 0.4 10^3/uL (0.2-0.9); Monocytes % 9.6 %; Neutrophils # 1.97 10^3/uL (1.8-7.7); Neutrophils % 50.8 %; Nucleated Red Blood Cells % 0 %; Platelet Count 198 10^3/cmm (130-400); Red Blood Count 4.29 10^6/uL (4.1-5.3); Red Cell Distribution Width 14.6 % (12.1-15.1); White Blood Count 3.9 10^3/uL (4.0-10.0)
[2022-07-04 09:20] LABS: Carcinoembryonic Antigen 3.4 ng/mL (0.0-4.7)
[2022-07-04 09:31] LABS: Alanine Aminotransferase 19 U/L (0-33); Albumin Level 3.8 g/dL (3.5-5.2); Alkaline Phosphatase 176 U/L (35-105); Anion Gap 14.5 (5-19); Aspartate Amino Transferase 21 U/L (0-32); Blood Urea Nitrogen 10 mg/dL (8-23); Calcium 8.9 mg/dL (8.5-10.5); Carbon Dioxide 23 mmol/L (22-29); Chloride 109 mmol/L (98-107); Globulin 2.2 g/dL (1.3-4.6); Glomerular Filtration Rate 101.6 mL/min (90-130); Glucose 105 mg/dL (65-115); Osmolality Calculated 293 mOsm/kg (285-295); Potassium 4.5 mmol/L (3.5-5.1); Sodium 142 mmol/L (136-145); Total Bilirubin 0.4 mg/dL (0.15-1.2)
== END 2022-07-11 23:59 | disposition home or self-care (01) ==
PROVIDERS: PCP Nurse Practitioner; Visit Provider Internal Medicine Medical Oncology
DX: C18.7 Malignant neoplasm of sigmoid colon
CPT/HCPCS: 80053; 82378; 85025; 99213

== ENCOUNTER → 2022-07-18 11:55 | Outpatient (BNVA) | payer OTHER, SELFPAY | PROVIDERS: PCP Nurse Practitioner; Visit Provider Surgery | DX: Z95.828 Presence of other vascular implants and grafts (principal) | CPT/HCPCS: 99213 ==

== ENCOUNTER 2022-09-22 10:53 | Outpatient (CLI) | payer OTHER, SELFPAY ==
--- NOTE | 2022-09-22 11:01 | MM_ITS ---
WS: [id number] BILATERAL SCREENING DIGITAL TOMOSYNTHESIS MAMMOGRAM WITH CAD HISTORY: SCREENING COMPARISON: None available. Bilateral CC and MLO views with tomosynthesis and synthetic mammography submitted. Computer aided det ection analyzed. Breast composition: There are scattered areas of fibroglandular density. No suspicious masses, microc alcifications or architectural distortion. Benign coarse calcification upper-outer quadrant RIGHT molly ast. There is a focal asymmetry also in the central RIGHT breast at 12:00 which is not masslike. MM/[place] [id number] IMPRESSION: BI-RADS: 2-Benign FOLLOW UP: 1 Year Follow-up
== END 2022-09-22 10:54 | disposition home or self-care (01) ==
LOC: RAD 10:55
PROVIDERS: PCP Nurse Practitioner; Visit Provider Nurse Practitioner
DX: Z12.31 Encounter for screening mammogram for malignant neoplasm of breast (principal)
CPT/HCPCS: 77063; 77067

== ENCOUNTER 2022-12-18 12:59 | Oncology outpatient (recurring) (ONCR) | payer OTHER, SELFPAY | END 2023-01-11 23:59 | disposition home or self-care (01) | PROVIDERS: PCP Nurse Practitioner; Visit Provider Internal Medicine Medical Oncology | DX: Z08 Encounter for follow-up examination after completed treatment for malignant neoplasm (principal); Z85.038 Personal history of other malignant neoplasm of large intestine; Z90.49 Acquired absence of other specified parts of digestive tract; Z92.21 Personal history of antineoplastic chemotherapy | CPT/HCPCS: 99213 ==

== ENCOUNTER → 2022-12-25 13:10 | Outpatient (BNVA) | payer OTHER, SELFPAY | PROVIDERS: PCP Nurse Practitioner; Referring Provider Nurse Practitioner; Visit Provider Dermatology | DX: L40.0 Psoriasis vulgaris (principal); L81.4 Other melanin hyperpigmentation; L57.8 Other skin changes due to chronic exposure to nonionizing radiation; D22.39 Melanocytic nevi of other parts of face; D22.5 Melanocytic nevi of trunk | CPT/HCPCS: 99204 ==

== ENCOUNTER 2023-03-19 09:43 | Outpatient (CLI) | payer OTHER, SELFPAY ==
[2023-03-19] MEDS: iohexol 350 mg/mL 500 mL Btl (per mL) PO (10:38)
[2023-03-19 11:00] LABS: Blood Urea Nitrogen 9 mg/dL (8-23); Glomerular Filtration Rate 84.8 mL/min (90-130)
--- NOTE | 2023-03-19 11:00 | CT_ITS ---
WS: [id number] CT CHEST, ABDOMEN, AND PELVIS TECHNIQUE: Contrast-enhanced CT of the chest, abdomen, and pelvis with coronal and sagittal reformatt ed images. CLINICAL INFORMATION: colon cancer follow up COMPARISON: CT abdomen pelvis 08/22/2021 DLP: 1042.[address] scans at [facility] use at least one of these dose optimization techniques: automated e xposure control; mA and/or kV adjustment per patient size (includes targeted exams where dose is matc hed to clinical indication); or iterative reconstruction. CT CHEST: Lungs are well aerated. No acute pulmonary infiltrates. No focal pneumonia or pleural fluid. Mild tho racic kyphosis with hypertrophic changes. Normal caliber thoracic aorta. No suspicious pulmonary pare nchymal opacities. Small LEFT thyroid nodule measuring 6 mm. Normal caliber thoracic aorta. No axilla ry lymphadenopathy. No mediastinal or hilar lymphadenopathy. Tiny esophageal hiatal hernia. CT ABDOMEN AND PELVIS: Diffuse fatty infiltration of the liver. Normal portal vein and splenic vein. Mild fatty atrophy of t he pancreas. Normal spleen. Small esophageal hiatal hernia. Normal caliber abdominal aorta. Adrenal g lands are normal. Normal renal parenchyma enhancement. No hydronephrosis. Normal gallbladder. Widemou th fat-containing umbilical hernia. Sigmoid anastomosis. No evidence of recurrent mass or lesion. IMPRESSION: 1. No evidence of metastatic disease in the chest abdomen or pelvis. 2. Postoperative changes partial sigmoid resection with anastomosis. No evidence of recurrent obstru cting mass or lesion. 3. No lymphadenopathy in the chest abdomen or pelvis. 4. Widemouth fat-containing umbilical hernia.
[2023-03-19] MEDS: iohexol 350 mg/mL 500 mL Btl (per mL) IV (11:06)
== END 2023-03-19 09:44 | disposition home or self-care (01) ==
LOC: RAD 09:44
PROVIDERS: PCP Nurse Practitioner; Visit Provider Internal Medicine Medical Oncology
DX: C18.7 Malignant neoplasm of sigmoid colon (principal); Z90.49 Acquired absence of other specified parts of digestive tract; Z98.0 Intestinal bypass and anastomosis status; K42.9 Umbilical hernia without obstruction or gangrene
CPT/HCPCS: 71260; 74177; 82565; 84520; Q9967

== ENCOUNTER 2023-03-20 11:40 | Oncology outpatient (recurring) (ONCR) | payer OTHER, SELFPAY ==
[2023-03-20 12:02] VITALS: BP 123/84; PULSE 85; RESP 16; TEMP 36.9; O2SAT 97
[2023-03-20 12:14] LABS: Basophils % 0.9 %; Eosinophils # 0.1 10^3/uL (0.0-0.8); Eosinophils % 2.2 %; Hematocrit 40.9 % (36-47); Lymphocytes # 1.4 10^3/uL (0.8-4.8); Lymphocytes % 31.9 %; Mean Corpuscular HGB Conc 33.3 g/dL (30-55); Mean Corpuscular Hemoglobin 29.9 pg (27-33); Mean Corpuscular Volume 89.9 fl (85-98); Mean Platelet Volume 10.6 fL (7.4-10.4); Monocytes # 0.4 10^3/uL (0.2-0.9); Neutrophils # 2.56 10^3/uL (1.8-7.7); Neutrophils % 56.8 %; Nucleated Red Blood Cells % 0 %; Platelet Count 253 10^3/cmm (157-399); Red Blood Count 4.55 10^6/uL (3.85-5.65); Red Cell Distribution Width 12.7 % (12.1-15.1); White Blood Count 4.51 10^3/uL (3.29-11.43)
[2023-03-20 12:45] LABS: Carcinoembryonic Antigen 3.2 ng/mL (0.0-4.7)
[2023-03-20 12:56] LABS: Alanine Aminotransferase 23 U/L (0-33); Alkaline Phosphatase 170 U/L (35-105); Anion Gap 13.3 (5-19); Aspartate Amino Transferase 19 U/L (0-32); Blood Urea Nitrogen 9 mg/dL (8-23); Calcium 9.3 mg/dL (8.5-10.5); Carbon Dioxide 24 mmol/L (22-29); Chloride 110 mmol/L (98-107); Globulin 2.2 g/dL (1.3-4.6); Glomerular Filtration Rate 101.3 mL/min (90-130); Glucose 102 mg/dL (65-115); Osmolality Calculated 295 mOsm/kg (285-295); Potassium 4.3 mmol/L (3.5-5.1); Sodium 143 mmol/L (136-145); Total Bilirubin 0.4 mg/dL (0.15-1.2); Total Protein 6.2 g/dL (6.6-8.7)
== END 2023-04-12 23:59 | disposition home or self-care (01) ==
PROVIDERS: PCP Nurse Practitioner; Visit Provider Internal Medicine Medical Oncology
DX: Z08 Encounter for follow-up examination after completed treatment for malignant neoplasm (principal); Z85.038 Personal history of other malignant neoplasm of large intestine; Z90.49 Acquired absence of other specified parts of digestive tract; Z92.21 Personal history of antineoplastic chemotherapy; C18.7 Malignant neoplasm of sigmoid colon; Z51.11 Encounter for antineoplastic chemotherapy; Z79.899 Other long term (current) drug therapy; R53.0 Neoplastic (malignant) related fatigue; G62.0 Drug-induced polyneuropathy; T45.1X5A Adverse effect of antineoplastic and immunosuppressive drugs, initial encounter; D70.1 Agranulocytosis secondary to cancer chemotherapy; R74.01 Elevation of levels of liver transaminase levels; R59.0 Localized enlarged lymph nodes; F17.210 Nicotine dependence, cigarettes, uncomplicated
CPT/HCPCS: 36415; 80053; 82378; 85025; 99214

== ENCOUNTER → 2023-04-04 11:14 | Outpatient (BNVA) | payer OTHER, SELFPAY | PROVIDERS: PCP Nurse Practitioner; Visit Provider Nurse Practitioner Family | DX: L40.0 Psoriasis vulgaris (principal); D22.39 Melanocytic nevi of other parts of face; D22.5 Melanocytic nevi of trunk; L81.4 Other melanin hyperpigmentation | CPT/HCPCS: 99214 ==

== ENCOUNTER 2023-06-20 11:57 | Oncology outpatient (recurring) (ONCR) | payer OTHER, SELFPAY ==
[2023-06-20 12:41] LABS: Basophils % 0.7 %; Eosinophils # 0.1 10^3/uL (0.0-0.8); Eosinophils % 1.6 %; Hematocrit 41.8 % (36-47); Lymphocytes # 1.5 10^3/uL (0.8-4.8); Lymphocytes % 26.8 %; Mean Corpuscular Hemoglobin 29.2 pg (27-33); Mean Corpuscular Volume 88.6 fl (85-98); Mean Platelet Volume 10.8 fL (7.4-10.4); Monocytes # 0.4 10^3/uL (0.2-0.9); Monocytes % 6.3 %; Neutrophils # 3.58 10^3/uL (1.8-7.7); Neutrophils % 64.2 %; Nucleated Red Blood Cells % 0 %; Platelet Count 268 10^3/cmm (157-399); Red Blood Count 4.72 10^6/uL (3.85-5.65); Red Cell Distribution Width 12.5 % (12.1-15.1); White Blood Count 5.57 10^3/uL (3.29-11.43)
[2023-06-20 13:13] LABS: Carcinoembryonic Antigen 3.1 ng/mL (0.0-4.7)
[2023-06-20 13:24] LABS: Alanine Aminotransferase 15 U/L (0-33); Alkaline Phosphatase 171 U/L (35-105); Anion Gap 14.1 (5-19); Aspartate Amino Transferase 17 U/L (0-32); Blood Urea Nitrogen 10 mg/dL (8-23); Calcium 9.3 mg/dL (8.5-10.5); Carbon Dioxide 25 mmol/L (22-29); Chloride 104 mmol/L (98-107); Globulin 2.4 g/dL (1.3-4.6); Glomerular Filtration Rate 101.3 mL/min (90-130); Glucose 97 mg/dL (65-115); Osmolality Calculated 287 mOsm/kg (285-295); Potassium 4.1 mmol/L (3.5-5.1); Sodium 139 mmol/L (136-145); Total Bilirubin 0.3 mg/dL (0.15-1.2); Total Protein 6.4 g/dL (6.6-8.7)
== END 2023-07-12 23:59 | disposition home or self-care (01) ==
PROVIDERS: Nurse Practitioner Family; PCP Nurse Practitioner; Visit Provider Internal Medicine Medical Oncology
DX: Z85.038 Personal history of other malignant neoplasm of large intestine; Z90.49 Acquired absence of other specified parts of digestive tract; Z92.21 Personal history of antineoplastic chemotherapy; Z79.899 Other long term (current) drug therapy; F17.210 Nicotine dependence, cigarettes, uncomplicated; Z08 Encounter for follow-up examination after completed treatment for malignant neoplasm
CPT/HCPCS: 36415; 80053; 82378; 85025; 99214

== ENCOUNTER → 2023-08-01 14:19 | Outpatient (BNVA) | payer OTHER, SELFPAY | PROVIDERS: PCP Nurse Practitioner; Visit Provider Dermatology | DX: L40.0 Psoriasis vulgaris (principal); D22.39 Melanocytic nevi of other parts of face; L81.4 Other melanin hyperpigmentation; L57.8 Other skin changes due to chronic exposure to nonionizing radiation | CPT/HCPCS: 99214 ==

== ENCOUNTER 2023-08-06 10:51 | Outpatient (CLI) | payer OTHER, SELFPAY ==
--- NOTE | 2023-08-06 11:00 | CT_ITS ---
WS: [id number] CT CHEST, ABDOMEN, AND PELVIS TECHNIQUE: Contrast-enhanced CT of the chest, abdomen, and pelvis with coronal and sagittal reformatt ed images. CLINICAL INFORMATION: surveillance COMPARISON: CT 03/19/23 DLP: 1249.[address] scans at [facility] use at least one of these dose optimization techniques: automated e xposure control; mA and/or kV adjustment per patient size (includes targeted exams where dose is matc hed to clinical indication); or iterative reconstruction. CT CHEST: Lungs are well aerated. No acute pulmonary infiltrates. No focal pneumonia or pleural fluid. No suspi cious pulmonary parenchymal opacities. Normal caliber thoracic aorta. Aortic calcification. Small LEFT thyroid nodule unchanged. No mediasti nal or hilar lymphadenopathy. No axillary lymphadenopathy. Hypertrophic changes thoracic spine. Mild thoracic curve. Mild thoracic kyphosis. CT ABDOMEN AND PELVIS: Diffuse fatty infiltration of the liver. Normal portal vein and splenic vein. Mild fatty atrophy of t he pancreas. Normal spleen. Small esophageal hiatal hernia. Adrenal glands are normal. Normal renal p arenchymal enhancement. No hydronephrosis. Normal caliber abdominal aorta. Mild aortic calcification. Prior sigmoid anastomosis. No evidence of high-grade small or large bowel obstruction. [place]outh fat- containing umbilical hernia. This is unchanged from previous. IMPRESSION: 1. No evidence of new or progressed metastatic disease in the chest abdomen or pelvis. 2. No lymphadenopathy. 3. Prior postoperative changes partial sigmoid resection with anastomosis. No evidence of recurrent obstructing mass or lesion.
[2023-08-06] MEDS: iohexol 350 mg/mL 500 mL Btl (per mL) IV (11:52)
[2023-08-06] MEDS: iohexol 350 mg/mL 500 mL Btl (per mL) PO (11:52)
== END 2023-08-06 10:52 | disposition home or self-care (01) ==
LOC: RAD 10:51
PROVIDERS: PCP Nurse Practitioner; Visit Provider Nurse Practitioner Family
DX: C18.7 Malignant neoplasm of sigmoid colon (principal)
CPT/HCPCS: 71260; 74177; Q9967

== ENCOUNTER 2023-10-31 11:13 | Oncology outpatient (recurring) (ONCR) | payer OTHER, SELFPAY ==
[2023-10-31 11:31] LABS: Basophils % 0.4 %; Eosinophils # 0.2 10^3/uL (0.0-0.8); Eosinophils % 2.8 %; Hematocrit 41.1 % (36-47); Lymphocytes # 1.7 10^3/uL (0.8-4.8); Lymphocytes % 31.7 %; Mean Corpuscular HGB Conc 33.1 g/dL (30-55); Mean Corpuscular Hemoglobin 29.1 pg (27-33); Monocytes # 0.4 10^3/uL (0.2-0.9); Monocytes % 7.5 %; Neutrophils # 3.13 10^3/uL (1.8-7.7); Neutrophils % 57.4 %; Nucleated Red Blood Cells % 0 %; Platelet Count 248 10^3/cmm (157-399); Red Blood Count 4.67 10^6/uL (3.85-5.65); Red Cell Distribution Width 13.2 % (12.1-15.1); White Blood Count 5.45 10^3/uL (3.29-11.43)
[2023-10-31 11:58] LABS: Carcinoembryonic Antigen 3.3 ng/mL (0.0-4.7)
[2023-10-31 12:15] LABS: Alanine Aminotransferase 14 U/L (0-33); Albumin Level 3.9 g/dL (3.5-5.2); Alkaline Phosphatase 155 U/L (35-105); Blood Urea Nitrogen 9 mg/dL (8-23); Calcium 9.1 mg/dL (8.5-10.5); Carbon Dioxide 24 mmol/L (22-29); Chloride 108 mmol/L (98-107); Globulin 2.3 g/dL (1.3-4.6); Glomerular Filtration Rate 101.3 mL/min (90-130); Glucose 89 mg/dL (65-115); Osmolality Calculated 296 mOsm/kg (285-295); Sodium 144 mmol/L (136-145); Total Bilirubin 0.3 mg/dL (0.15-1.2); Total Protein 6.2 g/dL (6.6-8.7)
[2023-10-31 12:16] LABS: Anion Gap 16.3 (5-19); Aspartate Amino Transferase 20 U/L (0-32); Potassium 4.3 mmol/L (3.5-5.1)
== END 2023-11-11 23:59 | disposition home or self-care (01) ==
PROVIDERS: Nurse Practitioner Family; PCP Nurse Practitioner; Visit Provider Internal Medicine Medical Oncology
DX: C18.7 Malignant neoplasm of sigmoid colon (principal)
CPT/HCPCS: 36415; 80053; 82378; 85025; 99213

== ENCOUNTER → 2024-02-04 13:34 | Outpatient (BNVA) | payer OTHER, SELFPAY | PROVIDERS: PCP Nurse Practitioner; Visit Provider Nurse Practitioner Family | DX: L40.0 Psoriasis vulgaris (principal); D22.39 Melanocytic nevi of other parts of face; L81.4 Other melanin hyperpigmentation; L57.8 Other skin changes due to chronic exposure to nonionizing radiation | CPT/HCPCS: 99214 ==

== ENCOUNTER 2024-02-07 15:00 | Oncology outpatient (recurring) (ONCR) | payer OTHER, SELFPAY ==
--- NOTE | 2024-02-06 14:45 | CTR_ITS ---
PROCEDURE INFORMATION: Exam: CT Chest With Contrast; Diagnostic Exam date and time: 02/06/2024 2:44 PM Age: 64 years old Clinical indication: Condition or disease; Cancer; Other: Malignant neoplasm of sigmoid colon, prior surgery; Surgery date: 6+ months; Surgery type: Colon, thermal ablation; Additional info: Malignant neoplasm of sigmoid colon, please have this done at least a week before 02/07 TECHNIQUE: Imaging protocol: Diagnostic computed tomography of the chest with contrast. Radiation optimization: All CT scans at this facility use at least one of these dose optimization techniques: automated exposure control; mA and/or kV adjustment per patient size (includes targeted exams where dose is matched to clinical indication); or iterative reconstruction. Contrast material: OMNI 350; Contrast volume: 100 ml; Contrast route: INTRAVENOUS (IV); COMPARISON: CT chest abdpel w/*[id number] 08/06/2023 11:51 AM RADIATION DOSE METRICS: Total DLP (mGy-cm): 1057.96 FINDINGS: Lungs: Unremarkable. No consolidation. No masses. Pleural spaces: Unremarkable. No pneumothorax. No pleural effusion. Heart: Unremarkable. No cardiomegaly. No pericardial effusion. Lymph nodes: Unremarkable. No enlarged lymph nodes. Vasculature: Unremarkable. No aortic aneurysm. Bones/joints: Unremarkable. No acute fracture. Soft tissues: Unremarkable. PROCEDURE INFORMATION: Exam: CT Abdomen And Pelvis With Contrast Exam date and time: 02/06/2024 2:44 PM Age: 64 years old Clinical indication: Condition or disease; Cancer; Other: Malignant neoplasm of sigmoid colon, prior surgery; Surgery date: 6+ months; Surgery type: Colon, thermal ablation; Additional info: Malignant neoplasm of sigmoid colon, please have this done at least a week before 02/07 TECHNIQUE: Imaging protocol: Computed tomography of the abdomen and pelvis with contrast. Radiation optimization: All CT scans at this facility use at least one of these dose optimization techniques: automated exposure control; mA and/or kV adjustment per patient size (includes targeted exams where dose is matched to clinical indication); or iterative reconstruction. Contrast material: OMNI 350; Contrast volume: 100 ml; Contrast route: INTRAVENOUS (IV); COMPARISON: CT chest abdpel w/*[id number] 08/06/2023 11:51 AM RADIATION DOSE METRICS: Total DLP (mGy-cm): 1057.96 FINDINGS: Liver: Normal. No mass. Gallbladder and biliary ducts: Normal. No calcified stones. No ductal dilation. Pancreas: Normal. No ductal dilation. Spleen: Normal. No splenomegaly. Adrenal glands: Normal. No mass. Kidneys and ureters: Normal. No hydronephrosis. Stomach and bowel: Prior surgery to the sigmoid colon. No evidence of residual or recurrent disease. Appendix: No evidence of appendicitis. Intraperitoneal space: Unremarkable. No free air. No significant fluid collection. Vasculature: Unremarkable. No abdominal aortic aneurysm. Lymph nodes: Unremarkable. No enlarged lymph nodes. Urinary bladder: Unremarkable as visualized. Reproductive: Unremarkable as visualized. Bones/joints: Unremarkable. No acute fracture. Soft tissues: Unremarkable. CT/CT chest abdpel w/*[id number] IMPRESSION: 1. No acute findings. 2. No evidence of neoplastic disease. IMPRESSION: No acute findings. No evidence of neoplastic disease.
[2024-02-06] MEDS: iohexol 350 mg/mL 500 mL Btl (per mL) PO (15:09)
[2024-02-06] MEDS: iohexol 350 mg/mL 500 mL Btl (per mL) IV (15:09)
[2024-02-06 15:12] LABS: Blood Urea Nitrogen 10 mg/dL (8-23); Glomerular Filtration Rate 72.4 mL/min (90-130)
[2024-02-07 15:19] LABS: Basophils # 0.1 10^3/uL (0.0-0.1); Basophils % 0.8 %; Eosinophils # 0.2 10^3/uL (0.0-0.8); Eosinophils % 3.2 %; Hematocrit 43.6 % (36-47); Lymphocytes # 2.4 10^3/uL (0.8-4.8); Mean Corpuscular Hemoglobin 29.6 pg (27-33); Mean Corpuscular Volume 89.5 fl (85-98); Mean Platelet Volume 11.2 fL (7.4-10.4); Monocytes # 0.6 10^3/uL (0.2-0.9); Neutrophils # 3.38 10^3/uL (1.8-7.7); Nucleated Red Blood Cells % 0 %; Platelet Count 248 10^3/cmm (157-399); Red Blood Count 4.87 10^6/uL (3.85-5.65); Red Cell Distribution Width 12.6 % (12.1-15.1); White Blood Count 6.63 10^3/uL (3.29-11.43)
[2024-02-07 15:45] LABS: Carcinoembryonic Antigen 3.4 ng/mL (0.0-4.7)
[2024-02-07 15:56] LABS: Alanine Aminotransferase 15 U/L (0-33); Albumin Level 4.2 g/dL (3.5-5.2); Alkaline Phosphatase 165 U/L (35-105); Anion Gap 14.4 (5-19); Aspartate Amino Transferase 19 U/L (0-32); Blood Urea Nitrogen 11 mg/dL (8-23); Calcium 9.3 mg/dL (8.5-10.5); Carbon Dioxide 26 mmol/L (22-29); Chloride 108 mmol/L (98-107); Globulin 2.2 g/dL (1.3-4.6); Glomerular Filtration Rate 84.5 mL/min (90-130); Glucose 87 mg/dL (65-115); Osmolality Calculated 297 mOsm/kg (285-295); Potassium 4.4 mmol/L (3.5-5.1); Sodium 144 mmol/L (136-145); Total Bilirubin 0.4 mg/dL (0.15-1.2); Total Protein 6.4 g/dL (6.6-8.7)
== END 2024-02-11 23:59 | disposition home or self-care (01) ==
PROVIDERS: Internal Medicine; PCP Nurse Practitioner; Visit Provider Internal Medicine Medical Oncology
DX: C18.7 Malignant neoplasm of sigmoid colon (principal)
CPT/HCPCS: 36415; 71260; 74177; 80053; 82378; 82565; 84520; 85025

== ENCOUNTER → 2024-02-08 09:48 | Outpatient (BNVA) | payer OTHER, SELFPAY | PROVIDERS: PCP Nurse Practitioner; Visit Provider Nurse Practitioner Family | DX: F17.210 Nicotine dependence, cigarettes, uncomplicated; Z90.49 Acquired absence of other specified parts of digestive tract; F41.9 Anxiety disorder, unspecified; Z08 Encounter for follow-up examination after completed treatment for malignant neoplasm; Z85.038 Personal history of other malignant neoplasm of large intestine | CPT/HCPCS: 99214 ==

== ENCOUNTER 2024-05-22 13:10 | Oncology outpatient (recurring) (ONCR) | payer OTHER, SELFPAY ==
[2024-05-22 14:08] LABS: Basophils % 0.5 %; Eosinophils # 0.1 10^3/uL (0.0-0.8); Eosinophils % 2.2 %; Hematocrit 43.9 % (36-47); Lymphocytes # 2.2 10^3/uL (0.8-4.8); Lymphocytes % 36.3 %; Mean Corpuscular HGB Conc 33.3 g/dL (30-55); Mean Corpuscular Hemoglobin 29.7 pg (27-33); Mean Corpuscular Volume 89.4 fl (85-98); Monocytes # 0.5 10^3/uL (0.2-0.9); Monocytes % 8.3 %; Neutrophils # 3.12 10^3/uL (1.8-7.7); Neutrophils % 52.5 %; Nucleated Red Blood Cells % 0 %; Platelet Count 262 10^3/cmm (157-399); Red Blood Count 4.91 10^6/uL (3.85-5.65); Red Cell Distribution Width 12.6 % (12.1-15.1); White Blood Count 5.93 10^3/uL (3.29-11.43)
[2024-05-22 14:30] LABS: Carcinoembryonic Antigen 3.7 ng/mL (0.0-4.7)
[2024-05-22 14:41] LABS: Alanine Aminotransferase 13 U/L (0-33); Alkaline Phosphatase 163 U/L (35-105); Anion Gap 14.6 (5-19); Aspartate Amino Transferase 17 U/L (0-32); Blood Urea Nitrogen 13 mg/dL (8-23); Calcium 9.2 mg/dL (8.5-10.5); Carbon Dioxide 25 mmol/L (22-29); Chloride 105 mmol/L (98-107); Globulin 2.2 g/dL (1.3-4.6); Glomerular Filtration Rate 84.5 mL/min (90-130); Glucose 91 mg/dL (65-115); Osmolality Calculated 290 mOsm/kg (285-295); Potassium 4.6 mmol/L (3.5-5.1); Sodium 140 mmol/L (136-145); Total Bilirubin 0.4 mg/dL (0.15-1.2); Total Protein 6.2 g/dL (6.6-8.7)
== END 2024-06-13 23:59 | disposition home or self-care (01) ==
PROVIDERS: Nurse Practitioner Family; PCP Nurse Practitioner; Visit Provider Internal Medicine Medical Oncology
DX: Z08 Encounter for follow-up examination after completed treatment for malignant neoplasm (principal); Z85.038 Personal history of other malignant neoplasm of large intestine; Z90.49 Acquired absence of other specified parts of digestive tract; Z92.21 Personal history of antineoplastic chemotherapy; Z79.899 Other long term (current) drug therapy; F17.210 Nicotine dependence, cigarettes, uncomplicated; K59.00 Constipation, unspecified; F41.9 Anxiety disorder, unspecified; R10.2 Pelvic and perineal pain
CPT/HCPCS: 36415; 80053; 82378; 85025; 99214

== ENCOUNTER → 2024-06-05 14:11 | Outpatient (BNVA) | payer OTHER, SELFPAY | PROVIDERS: PCP Nurse Practitioner; Visit Provider Nurse Practitioner Family | DX: L40.0 Psoriasis vulgaris (principal); D22.39 Melanocytic nevi of other parts of face; L81.4 Other melanin hyperpigmentation; L57.8 Other skin changes due to chronic exposure to nonionizing radiation | CPT/HCPCS: 99214 ==

== ENCOUNTER → 2024-08-06 13:46 | Outpatient (BNVA) | payer OTHER, SELFPAY | PROVIDERS: PCP Nurse Practitioner; Visit Provider Podiatrist Foot & Ankle Surgery | DX: L60.3 Nail dystrophy (principal); L40.8 Other psoriasis | CPT/HCPCS: 99203 ==

== ENCOUNTER → 2024-08-26 14:28 | Outpatient (BNVA) | payer OTHER, SELFPAY | PROVIDERS: PCP Nurse Practitioner; Visit Provider Podiatrist Foot & Ankle Surgery | DX: B35.1 Tinea unguium (principal) | CPT/HCPCS: 99214 ==

== ENCOUNTER 2024-09-10 12:12 | Oncology outpatient (recurring) (ONCR) | payer OTHER, SELFPAY ==
[2024-09-10 12:32] LABS: Basophils % 0.7 %; Eosinophils # 0.1 10^3/uL (0.0-0.8); Eosinophils % 1.9 %; Hematocrit 41.9 % (36-47); Lymphocytes % 37.7 %; Mean Corpuscular HGB Conc 33.2 g/dL (30-55); Mean Corpuscular Hemoglobin 29.6 pg (27-33); Mean Corpuscular Volume 89.1 fl (85-98); Mean Platelet Volume 10.9 fL (7.4-10.4); Monocytes # 0.5 10^3/uL (0.2-0.9); Monocytes % 8.3 %; Neutrophils # 2.76 10^3/uL (1.8-7.7); Neutrophils % 51.2 %; Nucleated Red Blood Cells % 0 %; Platelet Count 249 10^3/cmm (157-399); Red Cell Distribution Width 12.8 % (12.1-15.1); White Blood Count 5.39 10^3/uL (3.29-11.43)
[2024-09-10 12:56] LABS: Carcinoembryonic Antigen 3.9 ng/mL (0.0-4.7)
[2024-09-10 13:07] LABS: Alanine Aminotransferase 12 U/L (0-33); Alkaline Phosphatase 148 U/L (35-105); Anion Gap 13.1 (5-19); Aspartate Amino Transferase 16 U/L (0-32); Blood Urea Nitrogen 8 mg/dL (8-23); Calcium 9.2 mg/dL (8.5-10.5); Carbon Dioxide 25 mmol/L (22-29); Chloride 105 mmol/L (98-107); Creatinine Clr Calc Pharmacy 105.2284; Globulin 2.4 g/dL (1.3-4.6); Glucose 91 mg/dL (65-115); Osmolality Calculated 286 mOsm/kg (285-295); Potassium 4.1 mmol/L (3.5-5.1); Sodium 139 mmol/L (136-145); Total Bilirubin 0.4 mg/dL (0.15-1.2); Total Protein 6.4 g/dL (6.6-8.7)
== END 2024-09-10 23:59 | disposition home or self-care (01) ==
PROVIDERS: Nurse Practitioner Family; PCP Nurse Practitioner; Visit Provider Internal Medicine Medical Oncology
DX: Z08 Encounter for follow-up examination after completed treatment for malignant neoplasm (principal); Z85.038 Personal history of other malignant neoplasm of large intestine; Z95.828 Presence of other vascular implants and grafts; Z92.21 Personal history of antineoplastic chemotherapy; F17.210 Nicotine dependence, cigarettes, uncomplicated; Z90.49 Acquired absence of other specified parts of digestive tract; F41.9 Anxiety disorder, unspecified
CPT/HCPCS: 36415; 80053; 82378; 85025; 99213

== ENCOUNTER 2024-09-29 14:00 | Oncology outpatient (recurring) (ONCR) | payer OTHER, SELFPAY ==
--- NOTE | 2024-09-29 14:06 | MM_ITS ---
WS: [id number] BILATERAL 3D TOMOSYNTHESIS DIGITAL SCREENING MAMMOGRAPHY WITH CAD CLINICAL INFORMATION: SCREENING HISTORY: Screening mammogram. No current complaints. COMPARISON: 2022 TECHNIQUE: Bilateral CC and MLO views. FINDINGS: Scattered fibroglandular densities bilaterally. No suspicious focal mass, asymmetry, calcifications, or architectural distortion. No evidence of malignancy. Dystrophic calcifications RIGHT breast. MM/MM scr tomosynthesis [id number] IMPRESSION: DENSITY: There are scattered areas of fibroglandular density. BI-RADS: 2 - Benign. FOLLOW UP: 1 Year Follow-up Recommend return to annual screening mammography.
== END 2024-10-11 23:59 | disposition home or self-care (01) ==
PROVIDERS: PCP Nurse Practitioner; Visit Provider Nurse Practitioner
DX: Z08 Encounter for follow-up examination after completed treatment for malignant neoplasm (principal); Z85.038 Personal history of other malignant neoplasm of large intestine; Z90.49 Acquired absence of other specified parts of digestive tract; Z92.21 Personal history of antineoplastic chemotherapy; Z79.899 Other long term (current) drug therapy; F17.210 Nicotine dependence, cigarettes, uncomplicated; K59.00 Constipation, unspecified; F41.9 Anxiety disorder, unspecified; R10.2 Pelvic and perineal pain
CPT/HCPCS: 77063; 77067

== ENCOUNTER → 2024-11-03 13:38 | Outpatient (BNVA) | payer OTHER, SELFPAY | PROVIDERS: PCP Nurse Practitioner; Visit Provider Podiatrist Foot & Ankle Surgery | DX: B35.1 Tinea unguium (principal) | CPT/HCPCS: 36415; 80053 ==

== ENCOUNTER → 2025-01-23 09:17 | Outpatient (BNVA) | payer OTHER, SELFPAY | PROVIDERS: PCP Nurse Practitioner; Visit Provider Orthopaedic Surgery | DX: M25.531 Pain in right wrist (principal) | CPT/HCPCS: 73110 ==

== ENCOUNTER 2025-01-23 10:07 | Outpatient (CLI) | payer OTHER, SELFPAY | END 2025-01-23 10:08 | disposition home or self-care (01) | LOC: SPT 10:08 | PROVIDERS: PCP Nurse Practitioner; Visit Provider Orthopaedic Surgery | DX: Z46.89 Encounter for fitting and adjustment of other specified devices (principal); M25.531 Pain in right wrist | CPT/HCPCS: L3809 ==

== ENCOUNTER 2025-02-04 13:37 | Oncology outpatient (recurring) (ONCR) | payer OTHER, SELFPAY ==
[2025-02-04 13:56] LABS: Hematocrit 43.6 % (36-47); Hemoglobin 14.50 g/dL (11.27-16.99); Mean Corpuscular HGB Conc 33.3 g/dL (30-55); Mean Corpuscular Hemoglobin 29.2 pg (27-33); Mean Corpuscular Volume 87.7 fl (85-98); Nucleated Red Blood Cells % 0 %; Platelet Count 274 10^3/cmm (157-399); Red Blood Count 4.97 10^6/uL (3.85-5.65); White Blood Count 6.21 10^3/uL (3.29-11.43)
[2025-02-04 14:17] LABS: Alanine Aminotransferase 17 U/L (0-33); Albumin Level 4.1 g/dL (3.5-5.2); Alkaline Phosphatase 128 U/L (35-105); Anion Gap 12.4 (5-19); Aspartate Amino Transferase 20 U/L (0-32); Blood Urea Nitrogen 12 mg/dL (8-23); Calcium 9.3 mg/dL (8.5-10.5); Carbon Dioxide 23 mmol/L (22-29); Chloride 109 mmol/L (98-107); Creatinine Clr Calc Pharmacy 104.3194; Globulin 2.4 g/dL (1.3-4.6); Glucose 131 mg/dL (65-115); Osmolality Calculated 292 mOsm/kg (285-295); Potassium 4.4 mmol/L (3.5-5.1); Sodium 140 mmol/L (136-145); Total Protein 6.5 g/dL (6.6-8.7)
[2025-02-04 16:23] LABS: Carcinoembryonic Antigen 5.3 ng/mL (0.0-4.7)
== END 2025-02-10 23:59 | disposition home or self-care (01) ==
PROVIDERS: Nurse Practitioner; PCP Nurse Practitioner; Visit Provider Nurse Practitioner
DX: Z08 Encounter for follow-up examination after completed treatment for malignant neoplasm (principal); Z85.038 Personal history of other malignant neoplasm of large intestine; F17.210 Nicotine dependence, cigarettes, uncomplicated; R74.8 Abnormal levels of other serum enzymes; M77.9 Enthesopathy, unspecified; Z92.21 Personal history of antineoplastic chemotherapy
CPT/HCPCS: 36415; 80053; 82378; 85025; 99214

== ENCOUNTER → 2025-02-09 08:53 | Outpatient (BNVA) | payer OTHER, SELFPAY | PROVIDERS: PCP Nurse Practitioner; Visit Provider Orthopaedic Surgery | DX: M25.531 Pain in right wrist (principal); M65.4 Radial styloid tenosynovitis [de Quervain] | CPT/HCPCS: 20605; 73110; 99213; J3301; J3490; J9999 ==

== ENCOUNTER 2025-02-11 14:57 | Oncology outpatient (recurring) (ONCR) | payer OTHER, SELFPAY ==
[2025-02-11] MEDS: iohexol 350 mg/mL 500 mL Btl (per mL) IV (16:12)
[2025-02-11] MEDS: iohexol 350 mg/mL 500 mL Btl (per mL) PO (16:12)
--- NOTE | 2025-02-11 17:15 | CTR_ITS ---
PROCEDURE INFORMATION: Exam: CT Chest With Contrast; Diagnostic Exam date and time: 02/11/2025 4:01 PM Age: 65 years old Clinical indication: Condition or disease: Malignant neoplasm of sigmoid colon TECHNIQUE: Imaging protocol: Diagnostic computed tomography of the chest with contrast. Radiation optimization: All CT scans at this facility use at least one of these dose optimization techniques: automated exposure control; mA and/or kV adjustment per patient size (includes targeted exams where dose is matched to clinical indication); or iterative reconstruction. Contrast material: OMNI 350; Contrast volume: 100 ml; Contrast route: INTRAVENOUS (IV); COMPARISON: CT chest abdpel w/*[id number] 02/06/2024 2:44 PM RADIATION DOSE METRICS: Total DLP (mGy-cm): 1101.25 FINDINGS: Thyroid: Subcentimeter nodule in the left lobe of the thyroid which does not meet ACR criteria for follow-up. Lungs: No consolidation. There is a ground-glass opacity in the left upper lobe measuring approximately 0.7 x 0.5 cm. Pleural spaces: No pneumothorax. No pleural effusion. Heart: No cardiomegaly. No pericardial effusion. Lymph nodes: No lymphadenopathy by CT size criteria. Vasculature: No aortic aneurysm. Main pulmonary artery is within normal limits in size. Bones/joints: No acute fracture. Soft tissues: Unremarkable. COMMENTS: Consistent with the [employer]'s Incidental Findings Committee white paper (J Am Ezekiel Radiol 2015): In patients aged 35 years and older with an incidental thyroid nodule equal to or greater than 1.[address], MRI or extrathyroidal US, further evaluation with dedicated thyroid US is recommended for patients with normal life expectancy and without comorbidities. For smaller nodules without suspicious features, no further evaluation or follow up is recommended. PROCEDURE INFORMATION: Exam: CT Abdomen And Pelvis With Contrast Exam date and time: 02/11/2025 4:01 PM Age: 65 years old Clinical indication: Malignant neoplasm of sigmoid colon TECHNIQUE: Imaging protocol: Computed tomography of the abdomen and pelvis with contrast. Radiation optimization: All CT scans at this facility use at least one of these dose optimization techniques: automated exposure control; mA and/or kV adjustment per patient size (includes targeted exams where dose is matched to clinical indication); or iterative reconstruction. Contrast material: OMNI 350; Contrast volume: 100 ml; Contrast route: INTRAVENOUS (IV); COMPARISON: CT chest abdpel w/*[id number] 08/06/2023 11:51 AM RADIATION DOSE METRICS: Total DLP (mGy-cm): 1101.25 FINDINGS: Liver: Normal. No mass. Gallbladder and biliary ducts: Unremarkable appearance of the gallbladder. No calcified stones. No biliary ductal dilation. Pancreas: No main pancreatic duct dilation. Diffuse pancreatic atrophy. Spleen: No splenomegaly. Adrenal glands: No adrenal nodule. Kidneys and ureters: Symmetric nephrograms. No hydronephrosis. Stomach and bowel: Prior sigmoid resection. No evidence of residual or recurrent mass at the resection site. No bowel dilation. No obstruction. No mucosal thickening. Appendix: The appendix is normal. Intraperitoneal space: No free air. No free fluid. Vasculature: Aortic atherosclerosis. No aortic aneurysm. Lymph nodes: No lymphadenopathy by CT size criteria. Urinary bladder: The urinary bladder is decompressed. Reproductive: The uterus is unremarkable. No adnexal mass. Bones/joints: No acute fracture. Soft tissues: Small fat containing umbilical hernia. CT/CT chest abdpel w/*[id number] IMPRESSION: 1. No acute thoracic abnormality. 2. There is a 0.7 x 0.5 cm ground-glass nodular opacity in the left upper lobe. Per Fleischner guidelines, recommend repeat CT at 6-12 months to evaluate for stability. IMPRESSION: 1. No acute process in the abdomen or pelvis. 2. No findings of recurrent or metastatic disease in the abdomen or pelvis.
== END 2025-03-13 23:59 | disposition home or self-care (01) ==
LOC: ONCMED 14:58
PROVIDERS: PCP Nurse Practitioner; Visit Provider Nurse Practitioner
DX: C18.7 Malignant neoplasm of sigmoid colon (principal); R91.8 Other nonspecific abnormal finding of lung field; E04.1 Nontoxic single thyroid nodule; K86.89 Other specified diseases of pancreas; Z98.890 Other specified postprocedural states; I70.0 Atherosclerosis of aorta; K42.9 Umbilical hernia without obstruction or gangrene
CPT/HCPCS: 71260; 74177

== ENCOUNTER → 2025-02-27 09:29 | Outpatient (BNVA) | payer OTHER, SELFPAY | PROVIDERS: PCP Nurse Practitioner; Visit Provider Orthopaedic Surgery | DX: M25.562 Pain in left knee (principal); G89.29 Other chronic pain | CPT/HCPCS: 73560; 73565; 99214 ==

== ENCOUNTER → 2025-03-23 12:53 | Outpatient (BNVA) | payer OTHER, SELFPAY | PROVIDERS: PCP Nurse Practitioner; Visit Provider Podiatrist Foot & Ankle Surgery | DX: B35.1 Tinea unguium (principal) | CPT/HCPCS: 99214 ==